=== PATIENT | male | born 1965 | race Two or more races ===

== ENCOUNTER 2024-05-12 18:04 | Inpatient (IN) | payer OTHER ==
[~2024-05-12] VITALS: Ht 180.3 cm; Wt 115.4 kg
[2024-05-12 20:54] VITALS: PULSE 102; RESP 18; O2SAT 93
[2024-05-12] MEDS ORDERED: OMEP1CAP70 (21:27)
[2024-05-12] MEDS ORDERED: METF-372 (21:27)
[2024-05-12] MEDS ORDERED: CLOB0.05 (21:27)
[2024-05-12] MEDS ORDERED: LISI20TA56 (21:27)
[2024-05-12] MEDS ORDERED: TAMS0.4C39 (21:27)
[2024-05-12] MEDS ORDERED: DOCU-265 (21:27)
[2024-05-12] MEDS ORDERED: MELA5TAB16 (21:27)
[2024-05-12] MEDS ORDERED: FIN5T (21:27)
[2024-05-12] MEDS ORDERED: LACT10SO3 PO (21:27)
[2024-05-12] MEDS ORDERED: ALBU1AER4 (21:27)
[2024-05-12 21:29] VITALS: BP 168/91; PULSE 106; RESP 20; TEMP 98.7; O2SAT 97
[2024-05-12] MEDS ORDERED: ONDANSETRON HCL 4 MG/2 ML VIAL IV PRN (22:30)
[2024-05-12 23:02] LABS: Basophils # (auto) 0 10 ^3/uL (0-0.2); Basophils % (auto) 0.3 % (0.0-2.0); Eosinophils # (auto) 0.4 10 ^3/uL (0-0.8); Eosinophils % (auto) 4.6 % (0.0-7.0); Hematocrit 31.4 % (41.0-53.0); Hemoglobin 10.4 g/dL (13.5-17.5); Lymphocytes # (auto) 1.4 10 ^3/uL (0.4-5.4); Lymphocytes % (auto) 16.5 % (10.0-50.0); Mean Corpuscular Hemoglobin 30.1 pg (28.0-32.0); Mean Corpuscular Hgb Conc. 33.1 g/dL (32.0-36.0); Mean Corpuscular Volume 90.9 fL (80.0-100.0); Monocytes # (auto) 0.6 10 ^3/uL (0-1.3); Neutrophils # (auto) 6.3 10 ^3/uL (1.6-8.6); Neutrophils % (auto) 71.6 % (37.0-80.0); Nucleated Red Blood Cells % 0.1 %; Platelet Count (auto) 191 10^3/uL (140-450); Red Blood Cells 3.45 10^6/uL (4.5-5.90); White Blood Cell 8.7 10^3/uL (4.4-10.8)
[2024-05-12] MEDS: cefTRIAXone 1GM/50ML D5W 50 ML IV ONE (23:05)
[2024-05-12 23:17] LABS: Alanine Aminotransferase 72 U/L (7-40); Albumin 3.9 g/dL (3.2-4.8); Alkaline Phosphatase 97 U/L (46-116); Anion Gap 7 (5-15); Aspartate Aminotransferase 36 U/L (13-40); BUN/Creatinine Ratio 17.4 (10.0-20.0); Bilirubin, Total 0.5 mg/dL (0.2-1.0); Blood Urea Nitrogen 20 mg/dL (9-23); Calcium 9.5 mg/dL (8.7-10.4); Carbon Dioxide 22 mmol/L (20-31); Chloride 107 mmol/L (98-107); Glucose 129 mg/dL (74-106); Potassium 4.6 mmol/L (3.5-5.1); Sodium 136 mmol/L (136-145); Total Protein 7.1 g/dL (5.7-8.2)
[2024-05-13] VITALS (14 sets, daily range): BP systolic 114–168; BP diastolic 74–91; PULSE 75–109; RESP 17–20; TEMP 98–98.7; O2SAT 94–99
[2024-05-13] MEDS: ALBUTEROL SULF 2.5 MG/0.5ML(0.5%) NEB SOLN NEB PRN (03:05)
[2024-05-13] MEDS: TEMAZEPAM 15 MG CAP PO PRN (03:06)
--- NOTE | 2024-05-13 05:15 | DVH ---
CHEST RADIOGRAPH Indication: sob Technique: Single frontal view of the chest was obtained COMPARISON: None FINDINGS: Lines and Tubes: None Lungs: Mild congestion Pleura: No effusion. No pneumothorax. Cardiomediastinal contours: Unremarkable Bones: Unremarkable IMPRESSION: Mild congestion
--- NOTE | 2024-05-13 05:22 | DVHHP2 ---
History of Present Illness Reason for Visit: Shortness of breath History of Present Illness 58-year-old male presents for evaluation of shortness for breath. Patient presented to outside hospital with complaints of shortness for breath. He had been seen 10 days prior was diagnosed with pneumonia and a pleural effusion. He reports worsening shortness for breath with difficulty taking deep breaths. He also reports left-sided chest pain. Denies fever or chills. Past Medical History Hypertension, diabetes mellitus, asthma, BPH, liver cirrhosis Past Surgical History None Family History Noncontributory Smoke: No ALCOHOL: none Drugs: None Lives: with Family Review of Systems Review of Systems Review of systems are currently negative otherwise addressed in HPI. Allergies: Coded Allergies: Avocado (Verified Allergy, Unknown, 05/12/24) Banana (Verified Allergy, Unknown, 05/12/24) Kiwi Extract (Verified Allergy, Unknown, 05/12/24) Latex (Verified Allergy, Unknown, 05/12/24) Shrimp Flavor (Verified Allergy, Unknown, 05/12/24) Medications Current Medications Medications Dose Ordered Sig/Meghann Route Start Time Stop Time Status Last Admin Dose Admin Ceftriaxone Sodium 50 ml @ 100 mls/hr DAILY@2100 IV 05/13/24 21:00 Azithromycin 250 ml @ 125 mls/hr DAILY IV 05/13/24 10:00 Albuterol 2.5 mg Q6HPRN PRN NEB 05/12/24 22:30 05/13/24 03:05 2.5 MG Guaifenesin/ Dextromethorphan 10 ml Q4HP PRN PO 05/12/24 22:30 Lisinopril 20 mg DAILY PO 05/13/24 10:00 Tamsulosin HCl 0.4 mg QPM PO 05/13/24 18:00 Temazepam 15 mg QHSP PRN PO 05/12/24 22:30 05/13/24 03:06 15 MG Ondansetron HCl 4 mg Q4HP PRN IV 05/12/24 22:30 Acetaminophen 650 mg Q6HP PRN PO 05/12/24 22:30 Exam Vital Signs Vital Signs Date Time Temp Pulse Resp B/P (MAP) Pulse Ox O2 Delivery O2 Flow Rate FiO2 05/13/24 03:13 92 20 99 05/13/24 03:05 98.7 168/91 3.0 32 98.7 05/13/24 03:05 Nasal Cannula Exam Gen: 58-year-old male in mild distress Skin: Warm, dry, normal color and texture, no rash. HEENT: Normocephalic atraumatic, mucous membranes moist and pink. Neck: Cervical and supraclavicular nodes normal without enlargement, trachea is midline, thyroid gland is normal without masses. Pulmonary: Diminished left-sided breath sounds Cardiac: Regular rate and rhythm. No murmur Abdomen: Soft, nontender, nondistended, bowel sounds present all 4 quadrants, no guarding, no rigidity, no organomegaly. Extremities: No cyanosis, clubbing, no edema Neuro: Cranial nerves II through XII grossly intact, normal affect and speech, n o focal motor deficits. Labs/Xrays Labs Test 05/12/24 22:47 Range/Units White Blood Count 8.7 4.4-10.8 10^3/uL Red Blood Count 3.45 L 4.5-5.90 10^6/uL Hemoglobin 10.4 L 13.5-17.5 g/dL Hematocrit 31.4 L 41.0-53.0 % Mean Corpuscular Volume 90.9 80.0-100.0 fL Mean Corpuscular Hemoglobin 30.1 28.0-32.0 pg Mean Corpuscular Hemoglobin Concent 33.1 32.0-36.0 g/dL Red Cell Distribution Width 15.0 H 11.8-14.3 % Platelet Count 191 140-450 10^3/uL Mean Platelet Volume 7.8 6.9-10.8 fL Neutrophils (%) (Auto) 71.6 37.0-80.0 % Lymphocytes (%) (Auto) 16.5 10.0-50.0 % Monocytes (%) (Auto) 7.0 0.0-12.0 % Eosinophils (%) (Auto) 4.6 0.0-7.0 % Basophils (%) (Auto) 0.3 0.0-2.0 % Neutrophils # (Auto) 6.3 1.6-8.6 10 ^3/uL Lymphocytes # (Auto) 1.4 0.4-5.4 10 ^3/uL Monocytes # (Auto) 0.6 0-1.3 10 ^3/uL Eosinophils # (Auto) 0.4 0-0.8 10 ^3/uL Basophils # (Auto) 0 0-0.2 10 ^3/uL Nucleated Red Blood Cells 0.1 % D-Dimer, Quantitative 6.48 H 0.0-0.49 mg/L FEU Sodium Level 136 136-145 mmol/L Potassium Level 4.6 3.5-5.1 mmol/L Chloride Level 107 98-107 mmol/L Carbon Dioxide Level 22 20-31 mmol/L Anion Gap 7 5-15 Blood Urea Nitrogen 20 9-23 mg/dL Creatinine 1.15 0.700-1.30 mg/dL Glomerular Filtration Rate Calc 75 >90 mL/min BUN/Creatinine Ratio 17.4 10.0-20.0 Serum Glucose 129 H 74-106 mg/dL Calcium Level 9.5 8.7-10.4 mg/dL Total Bilirubin 0.5 0.2-1.0 mg/dL Aspartate Amino Transferase (AST) 36 13-40 U/L Alanine Aminotransferase (ALT) 72 H 7-40 U/L Alkaline Phosphatase 97 46-116 U/L Troponin I High Sensitivity < 3 L </=54 ng/L B-Type Natriuretic Peptide 11.88 0-100 pg/mL Total Protein 7.1 5.7-8.2 g/dL Albumin 3.9 3.2-4.8 g/dL Assessment/Plan Assessment/Plan Assessment Community-acquired pneumonia Large left-sided pleural effusion Hypertension Diabetes mellitus Plan Admit the patient to [facility] to the hospitalist Radiology consultation for possible thoracentesis CT angiogram pending Resume home medications Continue treatment per orders. Plan discussed with: Patient My Orders Orders - NORIS CLAYTON AGACNP Procedure Category Date Status Time Chest Xray 1 View XY 05/13/24 Taken 04:00 Ceftriaxone 1gm/50ml PHA 05/13/24 In Process D5w (Rocephin) 21:00 Azithromycin 500mg/ PHA 05/13/24 In Process 250ml (Zithromax 50 10:00 * Radiologist Consult CONS 05/12/24 Transmitted 22:23 Consistent DIET 05/13/24 Transmitted Carb(Ccho)Diabetes Breakfast Albuterol Medneb PHA 05/12/24 In Process (Ventolin Medneb) 22:30 Guaifenesin-Dextromet PHA 05/12/24 In Process Liquid (Robitussin 22:30 Lisinopril Tablet PHA 05/13/24 In Process (Zestril Tablet) 10:00 Tamsulosin PHA 05/13/24 In Process Hydrochloride (Flomax) 18:00 Admit ADMIT 05/12/24 Transmitted 22:23 Temazepam (Restoril) PHA 05/12/24 In Process 22:30 Ondansetron Hcl PHA 05/12/24 In Process (Zofran) 22:30 Condition: Stable MORGAN 05/12/24 In Process 22:23 Acetaminophen Tablet PHA 05/12/24 In Process (Tylenol Tablet) 22:30 Bedrest With Bathroom MORGAN 05/12/24 In Process Privileg 22:[address] 05/13/24 Logged Contrast 05:07 Date of Service: May 13, 2024 Billing Provider: NORIS CLAYTON Common Visit Codes: [id number] INP/OBS CARE (HIGH) NORIS CLAYTON May 13, 2024 05:22
[2024-05-13 06:01] LABS: COVID19 ANTIGEN SOFIA FIA NEGATIVE (NEGATIVE); Rapid Influenza A Negative (Negative); Rapid Influenza B Negative (Negative)
--- NOTE | 2024-05-13 08:10 | DVH ---
US CHEST ULTRASOUND, HISTORY: FLUID CHECK FOR POSSIBLE THORACENTESIS COMPARISON(S): None TECHNICAL DATA: Transverse and longitudinal images are obtained of the chest. FINDING: IMPRESSION(S): Small to moderate left pleural effusion with septation.
[2024-05-13] MEDS: IOHEXOL 350 MG/ML 100ML IJ ONE (08:14)
--- NOTE | 2024-05-13 09:07 | DVH ---
CT CT ANGIO CHEST CONTRAST INDICATION: r/o pe EXAM DATE: 05/13/2024 08:23 AM COMPARISON: None RADIATION DOSE: CTDIvol: 26.85 mGy, DLP: 1025.48 mGy*cm PROCEDURE: Helical CT angiographic images were obtained of the chest with intravenous contrast. Sagi ttal and coronal reconstructions as well as MIPS are provided. Maximum intensity projections performe d (MIPs) were performed for CTA. ADDITIONAL IMAGES / REFORMATS: None All CT scans at this medical facility are performed using dose modulation techniques as appropriate t o a performed exam including the following: Automated exposure control was utilized; adjustment of th e MA and/or KV according to patient size; and use of iterative reconstruction technique. FINDINGS: Bones: Scattered degenerative changes are noted in the visualized osseous structures. Visualized Abdomen: 2.8 cm hypodense left hepatic cystic lesion. Chest Wall: Normal. Soft tissues: Normal. Mediastinum: Normal. Heart: Normal. Vessels: No filling defects in the visualized pulmonary arteries including the segmental and subsegme ntal pulmonary arteries. Lymph Nodes: Prominent left perihilar lymph nodes. Pleura: Moderate loculated left pleural effusion. Airways: Normal. Lung: Left basilar consolidation could be pneumonia. Other: None IMPRESSION: No pulmonary embolism in the visualized pulmonary arteries including the segmental and subsegmental p ulmonary arteries. Moderate loculated left pleural effusion. Left basilar consolidation could be pneumonia.
--- NOTE | 2024-05-13 09:18 | DVH ---
XY CHEST PORTABLE, HISTORY: POST THORACENTESIS COMPARISON: XY CHEST XRAY 1 VIEW on DOS: 05/13/24 XY CHEST XRAY 1 VIEW on DOS: 05/13/24 TECHNICAL DATA: 1 view of the chest was obtained. FINDINGS: Lines and tubes: None Cardiomediastinal silhouette: normal Pulmonary vasculature: normal Lung expansion: normal Lung airspace: normal Lung interstitium: normal Pleura: Small right pleural effusion. Pneumothorax: no Bones: Unremarkable Other: no IMPRESSION: Small right pleural effusion. No pneumothorax seen.
[2024-05-13] MEDS: LISINOPRIL 20 MG TAB PO SCH (09:19)
[2024-05-13] MEDS: ACETAMINOPHEN 325 MG TAB PO PRN (09:20)
--- NOTE | 2024-05-13 09:20 | DVH ---
US THORACENTESIS, HISTORY: LT PLUERAL EFFUSION PROCEDURE: Informed consent was obtained. The patient was seated on the bed. A limited localization u ltrasound of the left thorax was obtained, and the optimal approach was marked on the skin. The area was prepped with chlorhexidine which was allowed to dry and draped in the usual sterile fashion. Time out was performed. The skin and the soft tissues were infiltrated with 1% lidocaine. A 5.5 [place] ce ntesis needle catheter was advanced into left pleural space. Following aspiration of fluid, the kita ter was advanced and the needle removed. About 1200 cc of fluid was drained. Specimen/s was/were sent for appropriate cultures/cytology/cultures and cytology. No immediate complication was identified. FINDINGS: Moderate left pleural effusion. Aspirated fluid is clear and serous. IMPRESSION: left thoracentesis with 1.2L removed.
[2024-05-13 11:38] LABS: Body Fluid Red Blood Cells 8356 CUMM (0-2000); Body Fluid White Blood Cells 3118 CUMM (0-200)
[2024-05-13 11:39] LABS: Body Fluid Polymorphonuclear 61 % (0-25)
[2024-05-13] MEDS: AZITHROMYCIN 500MG/ 250ML 250 ML IV SCH (13:51)
[2024-05-13] MEDS: guaiFENesin-DM 100/10mg/5ml SYR PO PRN (13:51)
--- NOTE | 2024-05-13 14:12 | DVHPN2 ---
Progress Note Date Seen: May 13, 2024 Medical Necessity Reason Pt with a Central, PICC or Fol: No Subjective Patient reports: No new complaints Review of Systems: HEENT:Normal, CVS:Normal, RESPIRATORY:Normal, GI:Normal, :Normal, MSK:Normal, NEURO:Normal Objective vital signs Vital Sign Date Time Temp Pulse Resp B/P (MAP) Pulse Ox O2 Delivery O2 Flow Rate FiO2 05/13/24 10:00 94 Nasal Cannula* 3 32 05/13/24 09:19 146/76 05/13/24 08:50 98.2 101 18 98.2 Total Intake and Output 05/12/24 05/12/24 05/13/24 15:00 23:00 07:00 Intake Total 450 ml Balance 450 ml medications Current Medications Medications Dose Ordered Sig/Meghann Route Start Time Stop Time Status Last Admin Dose Admin Ceftriaxone Sodium 50 ml @ 100 mls/hr DAILY@2100 IV 05/13/24 21:00 Azithromycin 250 ml @ 125 mls/hr DAILY IV 05/13/24 10:00 05/13/24 13:51 125 MLS/HR Albuterol 2.5 mg Q6HPRN PRN NEB 05/12/24 22:30 05/13/24 03:05 2.5 MG Guaifenesin/ Dextromethorphan 10 ml Q4HP PRN PO 05/12/24 22:30 05/13/24 13:51 10 ML Lisinopril 20 mg DAILY PO 05/13/24 10:00 05/13/24 09:19 20 MG Tamsulosin HCl 0.4 mg QPM PO 05/13/24 18:00 Temazepam 15 mg QHSP PRN PO 05/12/24 22:30 05/13/24 03:06 15 MG Ondansetron HCl 4 mg Q4HP PRN IV 05/12/24 22:30 Acetaminophen 650 mg Q6HP PRN PO 05/12/24 22:30 05/13/24 09:20 650 MG Examination: GENERAL:Normal, HEENT:Normal, NECK:Normal, LUNGS:Normal, CVS:Normal, ABDOMEN:Normal, MSK:Normal, SKIN:Normal, NEURO:Normal, :Normal laboratory and microbiology Laboratory Tests 05/12/24 22:47 Test 05/12/24 22:47 Range/Units Serum Glucose 129 H 74-106 mg/dL Problem List/Assessment/Plan Problem List/Assessment/Plan #1 acute resp failure: cont oxygen #2 left effusion s/p thoracentesis: await results #3 ? pneumonia - gram positive/neg:iv antibiotics #4 dm: ssi #5 htn #6 obesity #7 liver cirrhosis- ? metabolic #8 wt loss #9 bph advance care planning- full code- time spent 19 mins Plan discussed with: Patient Date of Service: May 13, 2024 Billing Provider: NORIS BRONSON MD Common Visit Codes: [id number] INP/OBS CARE(HIGH) Secondary Visit Codes: [id number] CARE PLAN 30 MINUTES NORIS BRONSON MD May 13, 2024 14:12
[2024-05-13] MEDS ORDERED: DEXTROSE (50%) 50ML SYRG IV PRN (14:15)
[2024-05-13] MEDS: ACCU-CHEK COMFORT CURVE STRIP VI SCH (17:00)
[2024-05-13] MEDS: InsuLIN REG 1unit/0.01ml Soln (100units/ml) SC SCH (17:00)
[2024-05-13] MEDS: TAMSULOSIN HYDROCHLORIDE 0.4 MG CAP PO SCH (18:27)
[2024-05-13 19:11] LABS: Urine Bacteria None Seen /hpf (None Seen)
[2024-05-13 19:38] LABS: Urine Blood Negative /uL (Negative); Urine Clarity Clear (Clear); Urine Color Light-Yellow (Yellow); Urine Mucus FEW (None Seen); Urine Protein, UAD Negative (Negative); Urine Specific Gravity 1.021 (1.001-1.035); Urine Squamous Epithelial Cell FEW /hpf (<5); Urine Urobilinogen Normal (Negative); Urine WBC 2 /HPF (0-3)
[2024-05-13] MEDS: cefTRIAXone 1GM/50ML D5W 50 ML IV SCH (20:50)
[2024-05-14] VITALS (12 sets, daily range): BP systolic 112–135; BP diastolic 62–79; PULSE 81–102; RESP 17–20; TEMP 98–99.1; O2SAT 92–100
[2024-05-14 06:20] LABS: Basophils # (auto) 0 10 ^3/uL (0-0.2); Basophils % (auto) 0.4 % (0.0-2.0); Eosinophils # (auto) 0.4 10 ^3/uL (0-0.8); Hematocrit 30.1 % (41.0-53.0); Hemoglobin 10.1 g/dL (13.5-17.5); Lymphocytes # (auto) 1.3 10 ^3/uL (0.4-5.4); Lymphocytes % (auto) 17.1 % (10.0-50.0); Mean Corpuscular Hemoglobin 30.6 pg (28.0-32.0); Mean Corpuscular Hgb Conc. 33.7 g/dL (32.0-36.0); Mean Corpuscular Volume 90.8 fL (80.0-100.0); Monocytes # (auto) 0.7 10 ^3/uL (0-1.3); Neutrophils % (auto) 68.5 % (37.0-80.0); Platelet Count (auto) 190 10^3/uL (140-450); Red Blood Cells 3.31 10^6/uL (4.5-5.90); Red Cell Distribution Width 15.1 % (11.8-14.3); White Blood Cell 7.3 10^3/uL (4.4-10.8)
[2024-05-14 06:40] LABS: Anion Gap 9 (5-15); Carbon Dioxide 23 mmol/L (20-31); Chloride 105 mmol/L (98-107); Potassium 4.1 mmol/L (3.5-5.1); Sodium 137 mmol/L (136-145)
[2024-05-14 06:42] LABS: Calcium 9.8 mg/dL (8.7-10.4)
[2024-05-14 06:47] LABS: BUN/Creatinine Ratio 14.4 (10.0-20.0); Blood Urea Nitrogen 16 mg/dL (9-23); Glucose 141 mg/dL (74-106)
[2024-05-14 11:06] LABS: Protein, Body Fluid 5.5 g/dL (.)
--- NOTE | 2024-05-14 13:23 | DVHPN2 ---
Reviewed: Care Plan, H&P, Labs, Medications, Previous Orders, Radiology Changes from previous H/P or p: No Changes Objective Vitals Vital Signs Date Time Temp Pulse Resp B/P (MAP) Pulse Ox O2 Delivery O2 Flow Rate FiO2 05/14/24 10:25 99 18 100 05/14/24 10:19 Room Air 0.0 05/14/24 10:19 21 05/14/24 09:00 98.5 125/70 (88) 98.5 Intake/Output Intake and Output 05/14/24 07:00 Intake Total 854 ml Balance 854 ml Intake Oral 554 ml IV Total 300 ml # Voids 4 # Bowel Movements 1 Medications Current Medications Medications Dose Ordered Sig/Meghann Route Start Time Stop Time Status Last Admin Dose Admin Ceftriaxone Sodium 50 ml @ 100 mls/hr DAILY@2100 IV 05/13/24 21:00 05/13/24 20:50 100 MLS/HR Azithromycin 250 ml @ 125 mls/hr DAILY IV 05/13/24 10:00 05/14/24 08:58 125 MLS/HR Albuterol 2.5 mg Q6HPRN PRN NEB 05/12/24 22:30 05/14/24 10:17 2.5 MG Guaifenesin/ Dextromethorphan 10 ml Q4HP PRN PO 05/12/24 22:30 05/14/24 08:58 10 ML Lisinopril 20 mg DAILY PO 05/13/24 10:00 05/14/24 08:58 20 MG Tamsulosin HCl 0.4 mg QPM PO 05/13/24 18:00 05/13/24 18:27 0.4 MG Temazepam 15 mg QHSP PRN PO 05/12/24 22:30 05/13/24 22:45 15 MG Ondansetron HCl 4 mg Q4HP PRN IV 05/12/24 22:30 Acetaminophen 650 mg Q6HP PRN PO 05/12/24 22:30 05/14/24 08:58 650 MG Diagnostic Test (Pha) 1 strip ACHS 05/13/24 17:00 05/14/24 11:30 1 STRIP Insulin Human Regular ACHS SC 05/13/24 17:00 05/14/24 12:36 2 UNITS Dextrose 50 ml UD PRN IV 05/13/24 14:15 Laboratory Results Laboratory Tests 05/14/24 05:34 Chemistry Test 05/14/24 05:34 Calcium Level 9.8 mg/dL (8.7-10.4) HgA1c, TSH Test 05/14/24 05:34 Hemoglobin A1c 6.3 % A1C (<5.7) H Urinalysis Test 05/13/24 18:36 Urine Color Light-yellow (Yellow) Urine Clarity Clear (Clear) Urine pH 5.0 (5.0-9.0) Urine Specific [place] 1.021 (1.001-1.035) Urine Protein Negative (Negative) Urine Ketones Negative (Negative) Urine Blood Negative /uL (Negative) Urine Nitrite Negative (Negative) Urine Bilirubin Negative (Negative) Urine Urobilinogen Normal mg/dL (Negative) Urine Leukocyte Esterase Negative /uL (Negative) Urine RBC 6 /hpf (0 - 3) Urine Microscopic WBC 2 /HPF (0-3) Urine Squamous Epithelial Cells Few /hpf (<5) Urine Uric Acid Crystals Few /hpf (None Seen) Urine Bacteria None seen /hpf (None Seen) Urine Mucus Few (None Seen) Urine Glucose 3+ mg/dL (Normal) H Microbiology Microbiology Date/Time Source Procedure Growth Status 05/13/24 09:10 Pleural Fluid Gram Stain - Final Resulted 05/13/24 09:10 Pleural Fluid Aerobic Culture - Preliminary Resulted Labs and/or images reviewed: Labs reviewed by me, Image(s) reviewed by me Assessment/Plan Assessment/Plan Covering for Dr. Arrieta #1 acute resp failure: cont oxygen #2 left effusion s/p thoracentesis: Culture result pending #3 Community-acquired pneumonia: Rocephin azithromycin #4 dm: ssi #5 htn #6 obesity #7 liver cirrhosis- ? metabolic #8 wt loss #9 bph Time spent 45 minutes Advanced Care planning time 20 minutes Plan discussed with: Patient Date of Service: May 14, 2024 Billing Provider: VAL HEATH MD Common Visit Codes: [id number] INP/OBS CARE(HIGH) Secondary Visit Codes: [id number] CARE PLAN 30 MINUTES VAL HEATH MD May 14, 2024 13:23
[2024-05-14] MEDS: LACTULOSE 20Gm/30ML SOLN PO ONE (18:18)
[2024-05-15] VITALS (14 sets, daily range): BP systolic 121–131; BP diastolic 66–76; PULSE 88–111; RESP 18–20; TEMP 98–99.5; O2SAT 90–100
--- NOTE | 2024-05-15 10:06 | DVHPN2 ---
Reviewed: Care Plan, H&P, Labs, Medications, Previous Orders, Radiology Changes from previous H/P or p: No Changes Objective Vitals Vital Signs Date Time Temp Pulse Resp B/P (MAP) Pulse Ox O2 Delivery O2 Flow Rate FiO2 05/15/24 08:57 93 18 99 05/15/24 08:52 Room Air* 0 21 05/15/24 08:30 98.6 122/73 (89) 98.6 Intake/Output Intake and Output 05/15/24 07:00 Intake Total 1850 ml Balance 1850 ml Intake Oral 1550 ml IV Total 300 ml # Voids 7 # Bowel Movements 3 Medications Current Medications Medications Dose Ordered Sig/Meghann Route Start Time Stop Time Status Last Admin Dose Admin Ceftriaxone Sodium 50 ml @ 100 mls/hr DAILY@2100 IV 05/13/24 21:00 05/14/24 20:56 100 MLS/HR Azithromycin 250 ml @ 125 mls/hr DAILY IV 05/13/24 10:00 05/14/24 08:58 125 MLS/HR Albuterol 2.5 mg Q6HPRN PRN NEB 05/12/24 22:30 05/15/24 08:50 2.5 MG Guaifenesin/ Dextromethorphan 10 ml Q4HP PRN PO 05/12/24 22:30 05/14/24 23:40 10 ML Lisinopril 20 mg DAILY PO 05/13/24 10:00 05/14/24 08:58 20 MG Tamsulosin HCl 0.4 mg QPM PO 05/13/24 18:00 05/14/24 18:11 0.4 MG Temazepam 15 mg QHSP PRN PO 05/12/24 22:30 05/14/24 23:40 15 MG Ondansetron HCl 4 mg Q4HP PRN IV 05/12/24 22:30 Acetaminophen 650 mg Q6HP PRN PO 05/12/24 22:30 05/14/24 08:58 650 MG Diagnostic Test (Pha) 1 strip ACHS 05/13/24 17:00 05/15/24 06:04 1 STRIP Insulin Human Regular ACHS SC 05/13/24 17:00 05/15/24 06:04 2 UNITS Dextrose 50 ml UD PRN IV 05/13/24 14:15 Laboratory Results Laboratory Tests 05/14/24 05:34 Urinalysis Test 05/13/24 18:36 Urine Color Light-yellow (Yellow) Urine Clarity Clear (Clear) Urine pH 5.0 (5.0-9.0) Urine Specific [place] 1.021 (1.001-1.035) Urine Protein Negative (Negative) Urine Ketones Negative (Negative) Urine Blood Negative /uL (Negative) Urine Nitrite Negative (Negative) Urine Bilirubin Negative (Negative) Urine Urobilinogen Normal mg/dL (Negative) Urine Leukocyte Esterase Negative /uL (Negative) Urine RBC 6 /hpf (0 - 3) Urine Microscopic WBC 2 /HPF (0-3) Urine Squamous Epithelial Cells Few /hpf (<5) Urine Uric Acid Crystals Few /hpf (None Seen) Urine Bacteria None seen /hpf (None Seen) Urine Mucus Few (None Seen) Urine Glucose 3+ mg/dL (Normal) H Microbiology Microbiology Date/Time Source Procedure Growth Status 05/13/24 09:10 Pleural Fluid Gram Stain - Final Resulted 05/13/24 09:10 Pleural Fluid Aerobic Culture - Preliminary Resulted Labs and/or images reviewed: Labs reviewed by me, Image(s) reviewed by me Assessment/Plan Assessment/Plan Covering for Dr. Arrieta #1 acute resp failure: cont oxygen #2 left effusion s/p thoracentesis: Culture result pending #3 Community-acquired pneumonia: Rocephin azithromycin #4 dm: ssi #5 htn #6 obesity #7 liver cirrhosis- ? metabolic #8 wt loss #9 bph Time spent 48 minutes Plan discussed with: Patient Date of Service: May 15, 2024 Billing Provider: VAL HEATH MD Common Visit Codes: [id number] INP/OBS CARE(HIGH) VAL HEATH MD May 15, 2024 10:06
[2024-05-16] VITALS (13 sets, daily range): BP systolic 115–131; BP diastolic 61–72; PULSE 80–104; RESP 16–20; TEMP 98–99.6; O2SAT 91–100
[2024-05-16 07:00] LABS: Basophils # (auto) 0 10 ^3/uL (0-0.2); Basophils % (auto) 0.3 % (0.0-2.0); Eosinophils # (auto) 0.4 10 ^3/uL (0-0.8); Hematocrit 30.9 % (41.0-53.0); Hemoglobin 10.3 g/dL (13.5-17.5); Lymphocytes # (auto) 1.8 10 ^3/uL (0.4-5.4); Mean Corpuscular Hemoglobin 30.1 pg (28.0-32.0); Mean Corpuscular Hgb Conc. 33.4 g/dL (32.0-36.0); Mean Corpuscular Volume 90.3 fL (80.0-100.0); Monocytes # (auto) 0.7 10 ^3/uL (0-1.3); Monocytes % (auto) 7.9 % (0.0-12.0); Neutrophils # (auto) 6.4 10 ^3/uL (1.6-8.6); Neutrophils % (auto) 68.8 % (37.0-80.0); Platelet Count (auto) 243 10^3/uL (140-450); Red Blood Cells 3.42 10^6/uL (4.5-5.90); White Blood Cell 9.3 10^3/uL (4.4-10.8)
[2024-05-16 07:18] LABS: Albumin 3.9 g/dL (3.2-4.8); Anion Gap 11 (5-15); BUN/Creatinine Ratio 12.7 (10.0-20.0); Bilirubin, Total 0.4 mg/dL (0.2-1.0); Blood Urea Nitrogen 15 mg/dL (9-23); Calcium 9.4 mg/dL (8.7-10.4); Carbon Dioxide 23 mmol/L (20-31); Chloride 101 mmol/L (98-107); Potassium 4.3 mmol/L (3.5-5.1); Total Protein 7.1 g/dL (5.7-8.2)
[2024-05-16 07:24] LABS: Alanine Aminotransferase 106 U/L (7-40); Alkaline Phosphatase 118 U/L (46-116); Aspartate Aminotransferase 66 U/L (13-40); Glucose 135 mg/dL (74-106); Sodium 135 mmol/L (136-145)
--- NOTE | 2024-05-16 12:59 | DVHPN2 ---
Reviewed: Care Plan, H&P, Labs, Medications, Previous Orders, Radiology Changes from previous H/P or p: No Changes Objective Vitals Vital Signs Date Time Temp Pulse Resp B/P (MAP) Pulse Ox O2 Delivery O2 Flow Rate FiO2 05/16/24 09:29 125/72 05/16/24 09:00 98.1 98 18 91 98.1 05/16/24 03:17 4.0 05/16/24 03:17 Nasal Cannula* 36 Intake/Output Intake and Output 05/16/24 07:00 Intake Total 2548 ml Balance 2548 ml Intake Oral 2248 ml IV Total 300 ml # Voids 10 Medications Current Medications Medications Dose Ordered Sig/Meghann Route Start Time Stop Time Status Last Admin Dose Admin Ceftriaxone Sodium 50 ml @ 100 mls/hr DAILY@2100 IV 05/13/24 21:00 05/15/24 21:08 100 MLS/HR Azithromycin 250 ml @ 125 mls/hr DAILY IV 05/13/24 10:00 05/16/24 09:24 125 MLS/HR Albuterol 2.5 mg Q6HPRN PRN NEB 05/12/24 22:30 05/16/24 03:17 2.5 MG Guaifenesin/ Dextromethorphan 10 ml Q4HP PRN PO 05/12/24 22:30 05/15/24 22:15 10 ML Lisinopril 20 mg DAILY PO 05/13/24 10:00 05/16/24 09:29 20 MG Tamsulosin HCl 0.4 mg QPM PO 05/13/24 18:00 05/15/24 17:36 0.4 MG Temazepam 15 mg QHSP PRN PO 05/12/24 22:30 05/16/24 00:06 15 MG Ondansetron HCl 4 mg Q4HP PRN IV 05/12/24 22:30 Acetaminophen 650 mg Q6HP PRN PO 05/12/24 22:30 05/14/24 08:58 650 MG Diagnostic Test (Pha) 1 strip ACHS 05/13/24 17:00 05/16/24 11:50 1 STRIP Insulin Human Regular ACHS SC 05/13/24 17:00 05/16/24 11:51 3 UNITS Dextrose 50 ml UD PRN IV 05/13/24 14:15 Laboratory Results Laboratory Tests 05/16/24 05:38 Chemistry Test 05/16/24 05:38 Albumin 3.9 g/dL (3.2-4.8) Calcium Level 9.4 mg/dL (8.7-10.4) Total Protein 7.1 g/dL (5.7-8.2) LFT Test 05/16/24 05:38 Alanine Aminotransferase (ALT) 106 U/L (7-40) H Alkaline Phosphatase 118 U/L (46-116) H Aspartate Amino Transferase (AST) 66 U/L (13-40) H Total Bilirubin 0.4 mg/dL (0.2-1.0) Urinalysis Test 05/13/24 18:36 Urine Color Light-yellow (Yellow) Urine Clarity Clear (Clear) Urine pH 5.0 (5.0-9.0) Urine Specific [place] 1.021 (1.001-1.035) Urine Protein Negative (Negative) Urine Ketones Negative (Negative) Urine Blood Negative /uL (Negative) Urine Nitrite Negative (Negative) Urine Bilirubin Negative (Negative) Urine Urobilinogen Normal mg/dL (Negative) Urine Leukocyte Esterase Negative /uL (Negative) Urine RBC 6 /hpf (0 - 3) Urine Microscopic WBC 2 /HPF (0-3) Urine Squamous Epithelial Cells Few /hpf (<5) Urine Uric Acid Crystals Few /hpf (None Seen) Urine Bacteria None seen /hpf (None Seen) Urine Mucus Few (None Seen) Urine Glucose 3+ mg/dL (Normal) H Microbiology Microbiology Date/Time Source Procedure Growth Status 05/13/24 09:10 Pleural Fluid Gram Stain - Final Resulted 05/13/24 09:10 Pleural Fluid Aerobic Culture - Preliminary Resulted Labs and/or images reviewed: Labs reviewed by me, Image(s) reviewed by me Assessment/Plan Assessment/Plan Covering for Dr. Arrieta #1 acute resp failure: cont oxygen #2 left effusion s/p thoracentesis: Pleural fluid Culture result pending #3 Community-acquired pneumonia: Rocephin azithromycin #4 dm: ssi #5 htn #6 obesity #7 liver cirrhosis- ? metabolic #8 wt loss #9 bph Time spent 48 minutes Plan discussed with: Patient Date of Service: May 16, 2024 Billing Provider: VAL HEATH MD Common Visit Codes: [id number] INP/OBS CARE(HIGH) VAL HEATH MD May 16, 2024 12:59
[2024-05-17] VITALS (14 sets, daily range): BP systolic 105–128; BP diastolic 56–76; PULSE 88–106; RESP 17–20; TEMP 98.1–99.1; O2SAT 92–100
[2024-05-17 09:03] LABS: Hepatitis B Surface Antigen Negative (Negative)
[2024-05-17 09:24] LABS: Hepatitis A Ab IgM Negative; Hepatitis B Core IgM Negative (Negative); Hepatitis C Antibody Negative (Negative)
--- NOTE | 2024-05-17 12:59 | DVHPN2 ---
Progress Note Date Seen: May 17, 2024 Medical Necessity Reason Pt with a Central, PICC or Fol: No Subjective Patient reports: No new complaints Review of Systems: HEENT:Normal, CVS:Normal, RESPIRATORY:Normal, GI:Normal, :Normal, MSK:Normal, NEURO:Normal Objective vital signs Vital Sign Date Time Temp Pulse Resp B/P (MAP) Pulse Ox O2 Delivery O2 Flow Rate FiO2 05/17/24 10:22 124/76 05/17/24 09:54 93 Nasal Cannula* 3 32 05/17/24 09:25 91 18 05/17/24 08:52 98.6 98.6 Total Intake and Output 05/16/24 05/16/24 05/17/24 15:00 23:00 07:00 Intake Total 250 ml 1330 ml 600 ml Balance 250 ml 1330 ml 600 ml medications Current Medications Medications Dose Ordered Sig/Meghann Route Start Time Stop Time Status Last Admin Dose Admin Ceftriaxone Sodium 50 ml @ 100 mls/hr DAILY@2100 IV 05/13/24 21:00 05/16/24 21:48 100 MLS/HR Azithromycin 250 ml @ 125 mls/hr DAILY IV 05/13/24 10:00 05/17/24 10:24 125 MLS/HR Albuterol 2.5 mg Q6HPRN PRN NEB 05/12/24 22:30 05/17/24 09:18 2.5 MG Guaifenesin/ Dextromethorphan 10 ml Q4HP PRN PO 05/12/24 22:30 05/16/24 15:13 10 ML Lisinopril 20 mg DAILY PO 05/13/24 10:00 05/17/24 10:22 20 MG Tamsulosin HCl 0.4 mg QPM PO 05/13/24 18:00 05/16/24 17:15 0.4 MG Temazepam 15 mg QHSP PRN PO 05/12/24 22:30 05/16/24 21:47 15 MG Ondansetron HCl 4 mg Q4HP PRN IV 05/12/24 22:30 Acetaminophen 650 mg Q6HP PRN PO 05/12/24 22:30 05/14/24 08:58 650 MG Diagnostic Test (Pha) 1 strip ACHS 05/13/24 17:00 05/17/24 10:39 1 STRIP Insulin Human Regular ACHS SC 05/13/24 17:00 05/17/24 06:19 2 UNITS Dextrose 50 ml UD PRN IV 05/13/24 14:15 Examination: GENERAL:Normal, HEENT:Normal, NECK:Normal, LUNGS:Normal, CVS:Normal, ABDOMEN:Normal, MSK:Normal, SKIN:Normal, NEURO:Normal, :Normal laboratory and microbiology Laboratory Tests 05/16/24 05:38 Test 05/16/24 05:38 Range/Units Serum Glucose 135 H 74-106 mg/dL Microbiology Date/Time Source Procedure Growth Status 05/13/24 09:10 Pleural Fluid Gram Stain - Final Resulted 05/13/24 09:10 Pleural Fluid Aerobic Culture - Preliminary Resulted Problem List/Assessment/Plan Problem List/Assessment/Plan #1 acute resp failure: cont oxygen #2 left effusion s/p thoracentesis: exudate, ct chest/abd/pelvis #3 ? pneumonia - gram positive/neg:iv antibiotics #4 dm: ssi #5 htn #6 obesity #7 liver cirrhosis- ? metabolic #8 wt loss #9 bph #10 transaminitis: monitor advance care planning- full code- time spent 19 mins Plan discussed with: Patient My Orders My Orders Orders - NORIS BRONSON MD Procedure Category Date Status Time Ct Chest/Ab/Pl W Con- CT 05/17/24 Verified Iv Only 12:51 Azithromycin Tablet PHA 05/18/24 Verified (Zithromax Tablet) 10:00 Complete Blood Count LAB 05/18/24 Verified 06:00 Comprehensive LAB 05/18/24 Verified Metabolic Panel 06:00 Iron Panel LAB 05/18/24 Verified 06:00 Lactate Dehydrogenase LAB 05/18/24 Verified 05:00 Date of Service: May 17, 2024 Billing Provider: NORIS BRONSON MD Common Visit Codes: [id number] INP/OBS CARE(HIGH) NORIS BRONSON MD May 17, 2024 12:59
[2024-05-17] MEDS: IOHEXOL 300 MG/ML 100ML BOTTLE IJ ONE (13:19)
--- NOTE | 2024-05-17 13:59 | DVH ---
Exam: CT CT CHEST/AB/PL W CON- IV ONLY History: LEFT EFFUSION Comparison Study: None available at time of dictation. Technique: Multidetector spiral CT of the chest, abdomen and pelvis was performed from lower neck to pubic symphysis. 100 cc Omni 300 intravenous contrast was administered during this examination. Port al venous imaging was obtained. Axial, coronal and sagittal multiplanar reformats were performed by the technologist on a separate workstation. Radiation Dose : Chest/Abdomen/Pelvis: CTDIvol 23 mGy, DLP 1782.58 mGy*cm. Findings: Lower neck: Normal thyroid. Lungs: Left basilar atelectasis and consolidation. Heart/Vascular Structures: Normal heart size. Trace pericardial effusion. Lymph Nodes: Subcentimeter mediastinal lymph nodes. Pleura: Moderate loculated left pleural effusion. Liver: Few hepatic cysts. Diffuse hepatic steatosis. Peripheral geographic areas of increased densit y/enhancement in the right lobe of the liver. Gallbladder and biliary Tree: Unremarkable Spleen: Enlarged Pancreas: Subcentimeter cyst in the tail of the pancreas. Adrenal Glands: Unremarkable Kidneys: Bilateral renal calculi. Right renal cyst. No hydronephrosis. Bladder: Unremarkable Bowel: The stomach is grossly normal in appearance. Small bowel and colon are normal in caliber and d istribution. Normal appendix is visualized in the right lower quadrant without findings of appendici tis. Few loops of abnormal small bowel in the left mid abdomen with wall thickening and adjacent stra nding. Ascites: Absent Lymphadenopathy: No mesenteric, retroperitoneal or periportal lymphadenopathy. Abdominal wall and Mesentery: Unremarkable. Vasculature: The visualized abdominal aorta is normal in size and caliber. There is calcified atheros clerotic plaque involving the aorta and its branches. Abdominal and pelvic vessels demonstrate normal enhancement. Pelvic Organs: Unremarkable Musculoskeletal: No aggressive focal bony lesions, acute fractures or dislocation. IMPRESSION: 1. Moderate loculated left pleural effusion with associated left basilar atelectasis and consolidatio n. Nonspecific mediastinal lymphadenopathy. 2. Diffuse hepatic steatosis. Few hepatic cysts. Peripheral areas of increased density or enhanceme nt in the right lobe of the liver could be perfusional anomalies or focal fatty sparing. Subcentimete r cystic lesion in the tail of the pancreas. Consider further evaluation with MRI of the abdomen wit h contrast. 3. Few abnormal loops of small bowel in the left mid abdomen with associated wall thickening and jethro cent stranding. Finding is nonspecific but could be related to an infectious or inflammatory process . Clinical correlation and continued follow-up is recommended. Consider further evaluation with smal l bowel follow-through. 4. Bilateral renal calculi. Right renal cysts. No hydronephrosis. HS:Y
[2024-05-18] VITALS (13 sets, daily range): BP systolic 100–126; BP diastolic 47–75; PULSE 84–107; RESP 18–22; TEMP 97.9–98.8; O2SAT 91–98
[2024-05-18 06:15] LABS: Basophils # (auto) 0.1 10 ^3/uL (0-0.2); Basophils % (auto) 0.6 % (0.0-2.0); Eosinophils # (auto) 0.3 10 ^3/uL (0-0.8); Eosinophils % (auto) 2.8 % (0.0-7.0); Hematocrit 33.4 % (41.0-53.0); Hemoglobin 11.2 g/dL (13.5-17.5); Lymphocytes # (auto) 1.5 10 ^3/uL (0.4-5.4); Mean Corpuscular Hemoglobin 30.1 pg (28.0-32.0); Mean Corpuscular Hgb Conc. 33.4 g/dL (32.0-36.0); Mean Corpuscular Volume 90.1 fL (80.0-100.0); Monocytes # (auto) 0.7 10 ^3/uL (0-1.3); Monocytes % (auto) 6.6 % (0.0-12.0); Neutrophils # (auto) 7.9 10 ^3/uL (1.6-8.6); Platelet Count (auto) 285 10^3/uL (140-450); Red Blood Cells 3.71 10^6/uL (4.5-5.90); White Blood Cell 10.4 10^3/uL (4.4-10.8)
[2024-05-18 06:35] LABS: % Iron Saturation 15.4 % (20-55)
[2024-05-18 06:37] LABS: Albumin 3.8 g/dL (3.2-4.8); Anion Gap 11 (5-15); Aspartate Aminotransferase 34 U/L (13-40); BUN/Creatinine Ratio 18.4 (10.0-20.0); Bilirubin, Total 0.5 mg/dL (0.2-1.0); Blood Urea Nitrogen 21 mg/dL (9-23); Calcium 9.9 mg/dL (8.7-10.4); Carbon Dioxide 24 mmol/L (20-31); Chloride 100 mmol/L (98-107); Potassium 4.5 mmol/L (3.5-5.1)
[2024-05-18 06:38] LABS: Total Protein 7.4 g/dL (5.7-8.2)
[2024-05-18 06:50] LABS: Alanine Aminotransferase 91 U/L (7-40); Alkaline Phosphatase 118 U/L (46-116); Glucose 160 mg/dL (74-106); Sodium 135 mmol/L (136-145)
[2024-05-18] MEDS: AZITHROMYCIN 250 MG TAB PO SCH (09:03)
--- NOTE | 2024-05-18 12:10 | DVHPN2 ---
Progress Note Date Seen: May 18, 2024 Medical Necessity Reason Pt with a Central, PICC or Fol: No Subjective Patient reports: No new complaints Review of Systems: HEENT:Normal, CVS:Normal, RESPIRATORY:Normal, GI:Normal, :Normal, MSK:Normal, NEURO:Normal Objective vital signs Vital Sign Date Time Temp Pulse Resp B/P (MAP) Pulse Ox O2 Delivery O2 Flow Rate FiO2 05/18/24 11:53 98.6 101 18 126/75 (92) 92 98.6 05/18/24 10:00 Nasal Cannula* 3 32 Total Intake and Output 05/17/24 05/17/24 05/18/24 15:00 23:00 07:00 Intake Total 2503 ml 920 ml 500 ml Output Total 1000 ml Balance 2503 ml 920 ml -500 ml medications Current Medications Medications Dose Ordered Sig/Meghann Route Start Time Stop Time Status Last Admin Dose Admin Ceftriaxone Sodium 50 ml @ 100 mls/hr DAILY@2100 IV 05/13/24 21:00 05/16/24 21:48 100 MLS/HR Albuterol 2.5 mg Q6HPRN PRN NEB 05/12/24 22:30 05/18/24 09:15 2.5 MG Guaifenesin/ Dextromethorphan 10 ml Q4HP PRN PO 05/12/24 22:30 05/18/24 02:55 10 ML Lisinopril 20 mg DAILY PO 05/13/24 10:00 05/18/24 09:15 20 MG Tamsulosin HCl 0.4 mg QPM PO 05/13/24 18:00 05/17/24 17:16 0.4 MG Temazepam 15 mg QHSP PRN PO 05/12/24 22:30 05/17/24 22:40 15 MG Ondansetron HCl 4 mg Q4HP PRN IV 05/12/24 22:30 Acetaminophen 650 mg Q6HP PRN PO 05/12/24 22:30 05/14/24 08:58 650 MG Diagnostic Test (Pha) 1 strip ACHS 05/13/24 17:00 05/17/24 22:00 1 STRIP Insulin Human Regular ACHS SC 05/13/24 17:00 05/17/24 22:28 4 UNITS Dextrose 50 ml UD PRN IV 05/13/24 14:15 Azithromycin 500 mg DAILY PO 05/18/24 10:00 05/18/24 09:03 500 MG Examination: GENERAL:Normal, HEENT:Normal, NECK:Normal, LUNGS:Normal, CVS:Normal, ABDOMEN:Normal, MSK:Normal, SKIN:Normal, NEURO:Normal, :Normal laboratory and microbiology Laboratory Tests 05/18/24 05:45 Test 05/18/24 05:45 Range/Units Serum Glucose 160 H 74-106 mg/dL Microbiology Date/Time Source Procedure Growth Status 05/13/24 09:10 Pleural Fluid Gram Stain - Final Resulted 05/13/24 09:10 Pleural Fluid Aerobic Culture - Preliminary Resulted Problem List/Assessment/Plan Problem List/Assessment/Plan #1 acute resp failure: cont oxygen #2 left effusion s/p thoracentesis/ empyema: surg eval- dw dr Valencia #3 ? pneumonia - gram positive/neg:iv antibiotics #4 dm: ssi #5 htn #6 obesity #7 liver cirrhosis- ? metabolic #8 wt loss #9 bph #10 transaminitis: monitor advance care planning- full code- time spent 19 mins Plan discussed with: Patient My Orders My Orders Orders - NORIS BRONSON MD Procedure Category Date Status Time Ct Chest/Ab/Pl W Con- CT 05/17/24 Resulted Iv Only 12:51 Azithromycin Tablet PHA 05/18/24 In Process (Zithromax Tablet) 10:00 * Surgical Consult CONS 05/17/24 Transmitted Date of Service: May 18, 2024 Billing Provider: NORIS BRONSON MD Common Visit Codes: [id number] INP/OBS CARE(HIGH) NORIS BRONSON MD May 18, 2024 12:10
[2024-05-18] MEDS ORDERED: VANCOMYCIN PER PHARMACY 0 MG IV SCH (12:15)
--- NOTE | 2024-05-18 12:44 | DVHPN2 ---
Progress Note Date Seen: May 18, 2024 Medical Necessity Reason Pt with a Central, PICC or Fol: No Subjective Patient reports: No new complaints Review of Systems: HEENT:Normal, CVS:Normal, RESPIRATORY:Normal, GI:Normal, :Normal, MSK:Normal, NEURO:Normal Objective vital signs Vital Sign Date Time Temp Pulse Resp B/P (MAP) Pulse Ox O2 Delivery O2 Flow Rate FiO2 05/18/24 11:53 98.6 101 18 126/75 (92) 92 98.6 05/18/24 10:00 Nasal Cannula* 3 32 Total Intake and Output 05/17/24 05/17/24 05/18/24 15:00 23:00 07:00 Intake Total 2503 ml 920 ml 500 ml Output Total 1000 ml Balance 2503 ml 920 ml -500 ml medications Current Medications Medications Dose Ordered Sig/Meghann Route Start Time Stop Time Status Last Admin Dose Admin Ceftriaxone Sodium 50 ml @ 100 mls/hr DAILY@2100 IV 05/13/24 21:00 05/16/24 21:48 100 MLS/HR Albuterol 2.5 mg Q6HPRN PRN NEB 05/12/24 22:30 05/18/24 09:15 2.5 MG Guaifenesin/ Dextromethorphan 10 ml Q4HP PRN PO 05/12/24 22:30 05/18/24 02:55 10 ML Lisinopril 20 mg DAILY PO 05/13/24 10:00 05/18/24 09:15 20 MG Tamsulosin HCl 0.4 mg QPM PO 05/13/24 18:00 05/17/24 17:16 0.4 MG Temazepam 15 mg QHSP PRN PO 05/12/24 22:30 05/17/24 22:40 15 MG Ondansetron HCl 4 mg Q4HP PRN IV 05/12/24 22:30 Acetaminophen 650 mg Q6HP PRN PO 05/12/24 22:30 05/14/24 08:58 650 MG Diagnostic Test (Pha) 1 strip ACHS 05/13/24 17:00 05/17/24 22:00 1 STRIP Insulin Human Regular ACHS SC 05/13/24 17:00 05/17/24 22:28 4 UNITS Dextrose 50 ml UD PRN IV 05/13/24 14:15 Vancomycin HCl 0 ml @ 0 mls/hr UD IV 05/18/24 12:15 UNV Examination: GENERAL:Normal, HEENT:Normal, NECK:Normal, LUNGS:Normal, CVS:Normal, ABDOMEN:Normal, MSK:Normal, SKIN:Normal, NEURO:Normal, :Normal laboratory and microbiology Laboratory Tests 05/18/24 05:45 Test 05/18/24 05:45 Range/Units Serum Glucose 160 H 74-106 mg/dL Microbiology Date/Time Source Procedure Growth Status 05/13/24 09:10 Pleural Fluid Gram Stain - Final Resulted 05/13/24 09:10 Pleural Fluid Aerobic Culture - Preliminary Resulted Problem List/Assessment/Plan Problem List/Assessment/Plan #1 acute resp failure: cont oxygen #2 left effusion s/p thoracentesis/ empyema: surg planned for am #3 ? pneumonia - gram positive/neg:iv rocephin, vanc #4 dm: ssi #5 htn #6 obesity #7 liver cirrhosis- ? metabolic #8 wt loss #9 bph #10 transaminitis: monitor advance care planning- full code- time spent 19 mins Plan discussed with: Patient My Orders My Orders Orders - NORIS BRONSON MD Procedure Category Date Status Time Ct Chest/Ab/Pl W Con- CT 05/17/24 Resulted Iv Only 12:51 * Surgical Consult CONS 05/17/24 Transmitted Vancomycin Per PHA 05/18/24 Pending Pharmacy 12:15 Vancomycin PHA 05/18/24 In Process 1.25gm/250ml 12:30 PTPTT LAB 05/18/24 Transmitted 12:41 Date of Service: May 18, 2024 Billing Provider: NORIS BRONSON MD Common Visit Codes: [id number] INP/OBS CARE(HIGH) NORIS BRONSON MD May 18, 2024 12:44
[2024-05-18 14:05] LABS: INR 1.19 (0.9-1.15); Partial Thromboplastin Time 30.2 SEC (24.5-34.5); Prothrombin Time 12.4 sec (9.3-11.8)
[2024-05-18] MEDS: VANCOMYCIN 1.25GM/250ML 250 ML IV ONE (17:10)
[2024-05-19] VITALS (10 sets, daily range): BP systolic 108–117; BP diastolic 62–66; PULSE 88–114; RESP 12–20; TEMP 98.1–98.5; O2SAT 91–99
[2024-05-19 06:23] LABS: Basophils # (auto) 0 10 ^3/uL (0-0.2); Basophils % (auto) 0.4 % (0.0-2.0); Eosinophils # (auto) 0.2 10 ^3/uL (0-0.8); Eosinophils % (auto) 2.7 % (0.0-7.0); Hematocrit 30.6 % (41.0-53.0); Hemoglobin 10.3 g/dL (13.5-17.5); Lymphocytes # (auto) 1.3 10 ^3/uL (0.4-5.4); Lymphocytes % (auto) 15.2 % (10.0-50.0); Mean Corpuscular Hemoglobin 30.1 pg (28.0-32.0); Mean Corpuscular Hgb Conc. 33.6 g/dL (32.0-36.0); Mean Corpuscular Volume 89.4 fL (80.0-100.0); Monocytes # (auto) 0.6 10 ^3/uL (0-1.3); Monocytes % (auto) 6.9 % (0.0-12.0); Neutrophils # (auto) 6.5 10 ^3/uL (1.6-8.6); Neutrophils % (auto) 74.8 % (37.0-80.0); Platelet Count (auto) 262 10^3/uL (140-450); Red Blood Cells 3.42 10^6/uL (4.5-5.90); Red Cell Distribution Width 14.9 % (11.8-14.3); White Blood Cell 8.6 10^3/uL (4.4-10.8)
[2024-05-19] MEDS: ceFAZolin 2 GM/D5W100ml 100 ML IV ONE (09:15)
[2024-05-19] MEDS ORDERED: fentaNYL CITRATE 100 MCG/2 ML VL ONE ×2 (09:38→10:39)
[2024-05-19] MEDS ORDERED: KETAMINE 50mg/ML 1ml syringe ONE (09:38)
[2024-05-19] MEDS ORDERED: MIDAZOLAM HCL 2MG/2ML 2ml VIAL (1mg/ml) ONE (09:38)
[2024-05-19] MEDS ORDERED: GLYCOPYRROLATE 0.2 MG/ML 1ML VIAL ONE (09:39)
[2024-05-19] MEDS ORDERED: PROPOFOL 10 MG/ML 20 ML IV ONE (09:39)
[2024-05-19] MEDS ORDERED: LIDOCAINE 2% (LOCAL ANESTH.) PF 5ml SDV ONE (09:39)
[2024-05-19] MEDS ORDERED: ONDANSETRON HCL 4 MG/2 ML VIAL ONE (09:39)
[2024-05-19] MEDS ORDERED: ROCURONIUM 10MG/ML 10ML VIAL IV ONE (09:39)
[2024-05-19] MEDS ORDERED: HYDROmorphone HCL 2 MG/ML VL/or syr ONE (09:57)
[2024-05-19] MEDS: FAMOTIDINE (10MG/ML) 2ML VL IV ONE (10:04)
[2024-05-19] MEDS ORDERED: SUGAMMADEX 200mg/2ml Vial (100MG/ML) IV ONE (10:16)
[2024-05-19] MEDS ORDERED: MEPERIDINE HCL (25 MG/ML) 1ML VIAL ONE (11:07)
[2024-05-19] MEDS: BUPIVACAINE 0.5% P/F INJ 10 ML VIAL ONE (11:15)
[2024-05-19] MEDS: LIDOCAINE W/ EPINEPHRINE 1% 20ML VIAL ONE (11:15)
[2024-05-19] MEDS ORDERED: ONDANSETRON HCL 4 MG/2 ML VIAL IV PRN (11:45)
[2024-05-19] MEDS: ONDANSETRON HCL 4 MG/2 ML VIAL IV ONE (11:45)
[2024-05-19] MEDS ORDERED: HYDROmorphone HCL 2 MG/ML VL/or syr IV PRN (11:45)
[2024-05-19] MEDS ORDERED: D5W/SOD CHL 0.45%/KCL 20MEQ 1,000 ML IV SCH (11:45)
[2024-05-19] MEDS: ACCU-CHEK COMFORT CURVE STRIP VI ONE (11:45)
--- NOTE | 2024-05-19 12:34 | DVHOP ---
DATE OF SURGERY: 05/19/2024 PREOPERATIVE DIAGNOSES: Loculated left pleural effusion, pleural peel empyema. POSTOPERATIVE DIAGNOSES: Loculated left pleural effusion, pleural peel empyema. SURGEON: Clement Valencia MD CLIENT RELATIONS ASSOCIATE: Rajiv Levin NP ANESTHESIA: General endotracheal, Dr. Monroy. PROCEDURE: Thoracoscopy converted to thoracotomy DESCRIPTION OF PROCEDURE: Under general anesthesia with the patient's skin prepped and draped, the patient in lateral decubitus position with the left chest facing upward, the down axilla protected with an axillary roll, the knees by pillows and padded and secured, then elbows padded and secured, the patient's chest wall prepped and draped. A 1-inch incision was made in the lateral chest at the level of the fifth interspace through which thoracoscopic examination revealed dense pleural peel and sequestering of the left part of the chest. For this reason, the attempt at breaking up the adhesions was unsuccessful leading to bleeding and for this reason, I had converted the operation to a thoracotomy. The incision was enlarged and ribs retracted after division of the muscular tissue. The patient's chest was then explored. The dissecting finger was insinuated between the chest wall and the lung. The pleural peel was stripped from the lower and upper lobes to the best of my ability. Infected fluid was evacuated from the lower chest. Following completion of the decortication, the chest was irrigated with warm saline which was then aspirated. A 40 size chest tube was placed through separate incision and directed posterosuperiorly. Chest wall was then approximated using [id number] #1 Mersilene sutures and #1 double-stranded PDS sutures. Skin and subcutaneous tissues approximated using Monocryl sutures, Dermabond glue, and Steri-Strips. The patient remained stable throughout the procedure and left the operating room following an accurate needle and sponge count. His daughter was thoroughly informed by phone. MD MATTY Encinas/ARSENIO/JOHNATHON TID: [id number] RECEIPT: [id number]
--- NOTE | 2024-05-19 12:41 | DVH ---
CHEST RADIOGRAPH Indication: post left thoracotomy, decortication Technique: Single frontal view of the chest was obtained Comparison: XY CHEST PORTABLE on DOS: 05/13/24, XY CHEST XRAY 1 VIEW on DOS: 05/13/24, XY CHEST PORTABL E on DOS: 05/13/24 FINDINGS: Lines and tubes: Left chest tube noted. Cardiomediastinal silhouette: normal Pulmonary vasculature: normal Lung expansion: normal Lung airspace: normal Lung interstitium: normal Pleura: Postsurgical changes status post left thoracotomy. Pneumothorax: no Bones: Unremarkable Other: no IMPRESSION: Postsurgical changes status post left thoracotomy. Left chest tube noted.
--- NOTE | 2024-05-19 14:56 | DVHPN2 ---
Progress Note Date Seen: May 19, 2024 Medical Necessity Reason Pt with a Central, PICC or Fol: No Subjective Patient reports: No new complaints Review of Systems: HEENT:Normal, CVS:Normal, RESPIRATORY:Normal, GI:Normal, :Normal, MSK:Normal, NEURO:Normal Objective vital signs Vital Sign Date Time Temp Pulse Resp B/P (MAP) Pulse Ox O2 Delivery O2 Flow Rate FiO2 05/19/24 13:52 99 16 131/76 (94) 94 05/19/24 11:36 98.5 98.5 05/19/24 11:36 Mask 8.0 05/19/24 04:33 21 Total Intake and Output 05/18/24 05/18/24 05/19/24 15:00 23:00 07:00 Intake Total 1250 ml 150 ml Output Total 1000 ml Balance 250 ml 150 ml medications Current Medications Medications Dose Ordered Sig/Meghann Route Start Time Stop Time Status Last Admin Dose Admin Ceftriaxone Sodium 50 ml @ 100 mls/hr DAILY@2100 IV 05/13/24 21:00 05/18/24 22:20 100 MLS/HR Albuterol 2.5 mg Q6HPRN PRN NEB 05/12/24 22:30 05/19/24 04:33 2.5 MG Guaifenesin/ Dextromethorphan 10 ml Q4HP PRN PO 05/12/24 22:30 05/18/24 22:02 10 ML Lisinopril 20 mg DAILY PO 05/13/24 10:00 05/18/24 09:15 20 MG Tamsulosin HCl 0.4 mg QPM PO 05/13/24 18:00 05/18/24 17:53 0.4 MG Temazepam 15 mg QHSP PRN PO 05/12/24 22:30 05/18/24 17:53 15 MG Acetaminophen 650 mg Q6HP PRN PO 05/12/24 22:30 05/18/24 17:44 650 MG Diagnostic Test (Pha) 1 strip ACHS 05/13/24 17:00 05/17/24 22:00 1 STRIP Insulin Human Regular ACHS SC 05/13/24 17:00 05/17/24 22:28 4 UNITS Dextrose 50 ml UD PRN IV 05/13/24 14:15 Vancomycin HCl 0 ml @ 0 mls/hr UD IV 05/18/24 12:15 Vancomycin HCl 100 ml @ 100 mls/hr Q8H IV 05/19/24 11:00 Potassium Chloride/Dextrose/ Sod Cl 1,000 ml @ 75 mls/hr [id number] IV 05/19/24 11:45 Morphine Sulfate 2 mg Q3HPRN PRN IV 05/19/24 11:45 Ondansetron HCl 4 mg Q4HPRN PRN IV 05/19/24 11:45 Pantoprazole Sodium 40 mg DAILY IV 05/20/24 10:00 Examination: GENERAL:Normal, HEENT:Normal, NECK:Normal, LUNGS:Normal, LUNGS:Abnormal (left chest tube, oxygen), CVS:Normal, ABDOMEN:Normal, MSK:Normal, SKIN:Normal, NEURO:Normal, :Normal laboratory and microbiology Laboratory Tests 05/19/24 06:06 05/18/24 05:45 Test 05/18/24 05:45 Range/Units Serum Glucose 160 H 74-106 mg/dL Microbiology Date/Time Source Procedure Growth Status 05/13/24 09:10 Pleural Fluid Gram Stain - Final Complete 05/13/24 09:10 Pleural Fluid Aerobic Culture - Final Complete Problem List/Assessment/Plan Problem List/Assessment/Plan #1 acute resp failure: cont oxygen #2 left effusion s/p thoracentesis/ empyema: s/p thoracotomy,iv antibiotics #3 ? pneumonia - gram positive/neg:iv rocephin, vanc #4 dm: ssi #5 htn #6 obesity #7 liver cirrhosis- ? metabolic #8 wt loss #9 bph #10 transaminitis: monitor #11 acute renal failure ?vasomotor nephropathy:ivf, dc lisinopril advance care planning- full code- time spent 19 mins Plan discussed with: Patient My Orders My Orders Orders - NORIS BRONSON MD Procedure Category Date Status Time Vancomycin 750mg Kit PHA 05/19/24 In Process (Vancomycin Hcl) 11:00 Vancomycin Per MORGAN 05/20/24 In Process Pharmacy Protoc 11:00 Vancomycin,Trough LAB 05/20/24 Verified 10:00 Creatinine LAB 05/20/24 Verified 04:00 Critical Care Time (mins): 37 (critical care time 37 mins) Date of Service: May 19, 2024 Billing Provider: NORIS BRONSON MD Common Visit Codes: [id number] CARE 30-74 MIN NORIS BRONSON MD May 19, 2024 14:56
[2024-05-19] MEDS: SODIUM CHLORIDE 0.9% 1,000 ML IV SCH (15:48)
[2024-05-19] MEDS: MORPHINE SULFATE INJ 2 MG/ml SYRG IV PRN (16:52)
[2024-05-19] MEDS: VANCOMYCIN 750MG KIT 100 ML IV SCH (17:30)
[2024-05-19] MEDS: HYDROmorphone HCL 2 MG/ML VL/or syr ONE (21:05)
[2024-05-19] MEDS: HYDROMORPHONE HCL 1 MG/ML INJ IV ONE (21:11)
[2024-05-20] VITALS (26 sets, daily range): BP systolic 133–164; BP diastolic 66–76; PULSE 87–116; RESP 12–24; TEMP 98–98.6; O2SAT 92–99
[2024-05-20] MEDS: VANCOMYCIN 750MG KIT 100 ML IV SCH (01:19)
[2024-05-20 04:06] LABS: Basophils # (auto) 0 10 ^3/uL (0-0.2); Basophils % (auto) 0.4 % (0.0-2.0); Eosinophils # (auto) 0 10 ^3/uL (0-0.8); Eosinophils % (auto) 0.1 % (0.0-7.0); Hematocrit 29.5 % (41.0-53.0); Hemoglobin 9.9 g/dL (13.5-17.5); Lymphocytes # (auto) 1.3 10 ^3/uL (0.4-5.4); Lymphocytes % (auto) 11.5 % (10.0-50.0); Mean Corpuscular Hemoglobin 29.8 pg (28.0-32.0); Mean Corpuscular Hgb Conc. 33.4 g/dL (32.0-36.0); Mean Corpuscular Volume 89.3 fL (80.0-100.0); Monocytes # (auto) 0.7 10 ^3/uL (0-1.3); Monocytes % (auto) 6.4 % (0.0-12.0); Neutrophils # (auto) 9.3 10 ^3/uL (1.6-8.6); Neutrophils % (auto) 81.6 % (37.0-80.0); Platelet Count (auto) 264 10^3/uL (140-450); Red Blood Cells 3.31 10^6/uL (4.5-5.90); Red Cell Distribution Width 14.9 % (11.8-14.3); White Blood Cell 11.4 10^3/uL (4.4-10.8)
[2024-05-20 04:16] LABS: Albumin 3.5 g/dL (3.2-4.8); Alkaline Phosphatase 100 U/L (46-116); Anion Gap 7 (5-15); Aspartate Aminotransferase 34 U/L (13-40); BUN/Creatinine Ratio 20.8 (10.0-20.0); Blood Urea Nitrogen 21 mg/dL (9-23); Calcium 9.1 mg/dL (8.7-10.4); Carbon Dioxide 24 mmol/L (20-31); Chloride 106 mmol/L (98-107); Potassium 4.7 mmol/L (3.5-5.1); Sodium 137 mmol/L (136-145)
[2024-05-20 04:17] LABS: Bilirubin, Total 0.3 mg/dL (0.2-1.0); Total Protein 6.7 g/dL (5.7-8.2)
[2024-05-20 04:20] LABS: Alanine Aminotransferase 62 U/L (7-40); Glucose 160 mg/dL (74-106)
[2024-05-20] MEDS: HYDROmorphone HCL 2 MG/ML VL/or syr IV PRN ×2 (05:00→16:38)
--- NOTE | 2024-05-20 05:23 | DVH ---
EXAM: XR Chest, 1 View CLINICAL INDICATION: left effusion TECHNIQUE: Frontal view of the chest. COMPARISON: XY CHEST PORTABLE on DOS: 05/19/24, XY CHEST PORTABLE on DOS: 05/13/24, XY CHEST XRAY 1 V IEW on DOS: 05/13/24 FINDINGS: LUNGS AND PLEURAL SPACES: Left basilar atelectasis or pneumonia. HEART: Unremarkable. No cardiomegaly. MEDIASTINUM: Unremarkable. Normal mediastinal contour. BONES/JOINTS: Unremarkable. No acute fracture. TUBES, LINES AND DEVICES: Stable left-sided chest tube. No pneumothorax. OTHER FINDINGS: . . . IMPRESSION: 1. Left basilar atelectasis or pneumonia. 2. Stable left-sided chest tube. No pneumothorax.
--- NOTE | 2024-05-20 09:16 | DVHPN2 ---
Progress Note Date Seen: May 20, 2024 Medical Necessity Reason Pt with a Central, PICC or Fol: No Objective vital signs Vital Sign Date Time Temp Pulse Resp B/P (MAP) Pulse Ox O2 Delivery O2 Flow Rate FiO2 05/20/24 07:00 100 18 92 Nasal Cannula 4.0 05/20/24 07:00 126/63 (84) 05/20/24 06:00 93 05/19/24 11:36 98.5 98.5 Total Intake and Output 05/19/24 05/19/24 05/20/24 15:00 23:00 07:00 Intake Total 100 ml 1000 ml Output Total 180 ml 1285 ml 2390 ml Balance -80 ml -1285 ml -1390 ml medications Current Medications Medications Dose Ordered Sig/Meghann Route Start Time Stop Time Status Last Admin Dose Admin Ceftriaxone Sodium 50 ml @ 100 mls/hr DAILY@2100 IV 05/13/24 21:00 05/19/24 21:30 100 MLS/HR Albuterol 2.5 mg Q6HPRN PRN NEB 05/12/24 22:30 05/20/24 04:00 2.5 MG Guaifenesin/ Dextromethorphan 10 ml Q4HP PRN PO 05/12/24 22:30 05/18/24 22:02 10 ML Tamsulosin HCl 0.4 mg QPM PO 05/13/24 18:00 05/19/24 18:06 0.4 MG Acetaminophen 650 mg Q6HP PRN PO 05/12/24 22:30 05/19/24 18:06 650 MG Diagnostic Test (Pha) 1 strip ACHS 05/13/24 17:00 05/20/24 07:00 1 STRIP Insulin Human Regular ACHS SC 05/13/24 17:00 05/17/24 22:28 4 UNITS Dextrose 50 ml UD PRN IV 05/13/24 14:15 Vancomycin HCl 0 ml @ 0 mls/hr UD IV 05/18/24 12:15 Ondansetron HCl 4 mg Q4HPRN PRN IV 05/19/24 11:45 Pantoprazole Sodium 40 mg DAILY IV 05/20/24 10:00 Sodium Chloride 1,000 ml @ 100 mls/hr Q10H IV 05/19/24 15:00 05/20/24 04:00 100 MLS/HR Vancomycin HCl 100 ml @ 100 mls/hr Q8H IV 05/20/24 01:00 05/20/24 01:19 100 MLS/HR Hydromorphone HCl 0.5 mg Q4HPRN PRN IV 05/20/24 05:00 05/20/24 05:00 0.5 MG laboratory and microbiology Laboratory Tests 05/20/24 03:46 Test 05/20/24 03:46 Range/Units Serum Glucose 160 H 74-106 mg/dL Problem List/Assessment/Plan Problem List/Assessment/Plan 05/20/24 breathing"much easier", good air entry, no adventitial breath sounds, chest tube without air leak, serosanguineous pleural fluid. CXR with both lungs fully inflated, no pneumothorax, chest tube in good position.can downgrade to [place], [place] to start po intake Plan discussed with: Patient LANDEN RICHTER MD May 20, 2024 09:15
[2024-05-20] MEDS: PANTOPRAZOLE 40 MG/10 ML VIAL INJ IV SCH (09:20)
--- NOTE | 2024-05-20 14:58 | DVHPN2 ---
Progress Note Date Seen: May 20, 2024 Medical Necessity Reason Pt with a Central, PICC or Fol: No Subjective Patient reports: No new complaints Review of Systems: HEENT:Normal, CVS:Normal, RESPIRATORY:Normal, GI:Normal, :Normal, MSK:Normal, NEURO:Normal Objective vital signs Vital Sign Date Time Temp Pulse Resp B/P (MAP) Pulse Ox O2 Delivery O2 Flow Rate FiO2 05/20/24 14:00 89 05/20/24 14:00 16 98 Nasal Cannula* 4 36 05/20/24 14:00 143/66 (91) 05/20/24 12:00 98.0 98.0 Total Intake and Output 05/19/24 05/19/24 05/20/24 14:59 22:59 06:59 Intake Total 100 ml 1000 ml Output Total 180 ml 1075 ml 2230 ml Balance -80 ml -1075 ml -1230 ml medications Current Medications Medications Dose Ordered Sig/Meghann Route Start Time Stop Time Status Last Admin Dose Admin Ceftriaxone Sodium 50 ml @ 100 mls/hr DAILY@2100 IV 05/13/24 21:00 05/19/24 21:30 100 MLS/HR Albuterol 2.5 mg Q6HPRN PRN NEB 05/12/24 22:30 05/20/24 04:00 2.5 MG Guaifenesin/ Dextromethorphan 10 ml Q4HP PRN PO 05/12/24 22:30 05/18/24 22:02 10 ML Tamsulosin HCl 0.4 mg QPM PO 05/13/24 18:00 05/19/24 18:06 0.4 MG Acetaminophen 650 mg Q6HP PRN PO 05/12/24 22:30 05/19/24 18:06 650 MG Diagnostic Test (Pha) 1 strip ACHS 05/13/24 17:00 05/20/24 11:30 1 STRIP Insulin Human Regular ACHS SC 05/13/24 17:00 05/17/24 22:28 4 UNITS Dextrose 50 ml UD PRN IV 05/13/24 14:15 Vancomycin HCl 0 ml @ 0 mls/hr UD IV 05/18/24 12:15 Ondansetron HCl 4 mg Q4HPRN PRN IV 05/19/24 11:45 Pantoprazole Sodium 40 mg DAILY IV 05/20/24 10:00 05/20/24 09:20 40 MG Sodium Chloride 1,000 ml @ 100 mls/hr Q10H IV 05/19/24 15:00 05/20/24 04:00 100 MLS/HR Vancomycin HCl 100 ml @ 100 mls/hr Q8H IV 05/20/24 01:00 05/20/24 09:20 100 MLS/HR Hydromorphone HCl 0.5 mg Q4HPRN PRN IV 05/20/24 05:00 05/20/24 13:10 0.5 MG Examination: GENERAL:Normal, HEENT:Normal, NECK:Normal, LUNGS:Normal, LUNGS:Abnormal (LEFT CHEST TUBE), CVS:Normal, ABDOMEN:Normal, MSK:Normal, SKIN:Normal, NEURO:Normal, :Normal laboratory and microbiology Laboratory Tests 05/20/24 03:46 Test 05/20/24 03:46 Range/Units Serum Glucose 160 H 74-106 mg/dL Microbiology Date/Time Source Procedure Growth Status 05/13/24 09:10 Pleural Fluid Gram Stain - Final Complete 05/13/24 09:10 Pleural Fluid Aerobic Culture - Final Complete Problem List/Assessment/Plan Problem List/Assessment/Plan #1 acute resp failure: cont oxygen #2 left effusion s/p thoracentesis/ empyema: s/p thoracotomy,iv antibiotics, left chest tube #3 ? pneumonia - gram positive/neg:iv rocephin, vanc #4 dm: ssi #5 htn #6 obesity #7 liver cirrhosis- ? metabolic #8 wt loss #9 bph #10 transaminitis: monitor #11 acute renal failure ?vasomotor nephropathy:ivf, dc lisinopril advance care planning- full code- time spent 19 mins Plan discussed with: Patient My Orders My Orders Orders - NORIS BRONSON MD Procedure Category Date Status Time Vancomycin 750mg Kit PHA 05/20/24 In Process (Vancomycin Hcl) 01:00 Vancomycin Per MORGAN 05/20/24 In Process Pharmacy Protoc 17:00 Date of Service: May 20, 2024 Billing Provider: NORIS BRONSON MD Common Visit Codes: [id number] INP/OBS CARE(HIGH) NORIS BRONSON MD May 20, 2024 14:58
[2024-05-20] MEDS: SODIUM CHLORIDE 0.9% 1,000 ML IV SCH (15:00)
[2024-05-20] MEDS: Ensure HIGH Protein Chocolate 8oz Bottle PO SCH (17:39)
[2024-05-20] MEDS: VANCOMYCIN 1.25GM/250ML 250 ML IV SCH (18:14)
[2024-05-21] VITALS (21 sets, daily range): BP systolic 131–171; BP diastolic 70–83; PULSE 82–110; RESP 12–19; TEMP 97.6–98.9; O2SAT 93–98
[2024-05-21 05:18] LABS: Basophils # (auto) 0.1 10 ^3/uL (0-0.2); Basophils % (auto) 0.9 % (0.0-2.0); Eosinophils # (auto) 0.3 10 ^3/uL (0-0.8); Eosinophils % (auto) 2.7 % (0.0-7.0); Hematocrit 33.4 % (41.0-53.0); Hemoglobin 10.8 g/dL (13.5-17.5); Lymphocytes # (auto) 2.2 10 ^3/uL (0.4-5.4); Lymphocytes % (auto) 19.3 % (10.0-50.0); Mean Corpuscular Hemoglobin 29.2 pg (28.0-32.0); Mean Corpuscular Hgb Conc. 32.5 g/dL (32.0-36.0); Mean Corpuscular Volume 90.1 fL (80.0-100.0); Monocytes # (auto) 0.7 10 ^3/uL (0-1.3); Monocytes % (auto) 6.4 % (0.0-12.0); Neutrophils # (auto) 8.2 10 ^3/uL (1.6-8.6); Neutrophils % (auto) 70.7 % (37.0-80.0); Platelet Count (auto) 331 10^3/uL (140-450); Red Cell Distribution Width 15.2 % (11.8-14.3); White Blood Cell 11.5 10^3/uL (4.4-10.8)
--- NOTE | 2024-05-21 05:18 | DVH ---
EXAM: XR Chest, 1 View CLINICAL INDICATION: LEFT EMPYEMA TECHNIQUE: Frontal view of the chest. COMPARISON: XY CHEST PORTABLE on DOS: 05/20/24, XY CHEST PORTABLE on DOS: 05/19/24, XY CHEST PORTABLE on DOS: 05/13/24, XY CHEST XRAY 1 VIEW on DOS: 05/13/24 FINDINGS: LUNGS AND PLEURAL SPACES: Left pleural effusion. Left basilar atelectasis or pneumonia. HEART: Unremarkable. No cardiomegaly. MEDIASTINUM: Unremarkable. Normal mediastinal contour. BONES/JOINTS: Unremarkable. No acute fracture. TUBES, LINES AND DEVICES: Left-sided chest tube. No pneumothorax. OTHER FINDINGS: . . IMPRESSION: 1. Left pleural effusion. Left basilar atelectasis or pneumonia. 2. Left-sided chest tube. No pneumothorax.
[2024-05-21 05:37] LABS: Albumin 3.9 g/dL (3.2-4.8); Alkaline Phosphatase 100 U/L (46-116); Anion Gap 8 (5-15); Aspartate Aminotransferase 31 U/L (13-40); Bilirubin, Total 0.4 mg/dL (0.2-1.0); Blood Urea Nitrogen 19 mg/dL (9-23); Carbon Dioxide 25 mmol/L (20-31); Chloride 105 mmol/L (98-107); Potassium 4.9 mmol/L (3.5-5.1); Sodium 138 mmol/L (136-145); Total Protein 7.1 g/dL (5.7-8.2)
[2024-05-21 05:39] LABS: Alanine Aminotransferase 51 U/L (7-40); Glucose 137 mg/dL (74-106)
--- NOTE | 2024-05-21 11:45 | DVHPN2 ---
Progress Note Date Seen: May 21, 2024 Medical Necessity Reason Pt with a Central, PICC or Fol: No Objective vital signs Vital Sign Date Time Temp Pulse Resp B/P (MAP) Pulse Ox O2 Delivery O2 Flow Rate FiO2 05/21/24 10:49 100 16 146/83 05/21/24 10:00 96 Nasal Cannula* 3 32 05/21/24 04:00 97.6 97.6 Total Intake and Output 05/20/24 05/20/24 05/21/24 15:00 23:00 07:00 Intake Total 800 ml 1300 ml 1000 ml Output Total 830 ml 1050 ml Balance 800 ml 470 ml -50 ml medications Current Medications Medications Dose Ordered Sig/Meghann Route Start Time Stop Time Status Last Admin Dose Admin Ceftriaxone Sodium 50 ml @ 100 mls/hr DAILY@2100 IV 05/13/24 21:00 05/19/24 21:30 100 MLS/HR Albuterol 2.5 mg Q6HPRN PRN NEB 05/12/24 22:30 05/20/24 04:00 2.5 MG Guaifenesin/ Dextromethorphan 10 ml Q4HP PRN PO 05/12/24 22:30 05/18/24 22:02 10 ML Tamsulosin HCl 0.4 mg QPM PO 05/13/24 18:00 05/20/24 16:39 0.4 MG Acetaminophen 650 mg Q6HP PRN PO 05/12/24 22:30 05/19/24 18:06 650 MG Diagnostic Test (Pha) 1 strip ACHS 05/13/24 17:00 05/21/24 07:08 1 STRIP Insulin Human Regular ACHS SC 05/13/24 17:00 05/17/24 22:28 4 UNITS Dextrose 50 ml UD PRN IV 05/13/24 14:15 Vancomycin HCl 0 ml @ 0 mls/hr UD IV 05/18/24 12:15 Ondansetron HCl 4 mg Q4HPRN PRN IV 05/19/24 11:45 Pantoprazole Sodium 40 mg DAILY IV 05/20/24 10:00 05/21/24 07:49 40 MG Sodium Chloride 1,000 ml @ 75 mls/hr [id number] IV 05/20/24 15:00 05/21/24 08:39 75 MLS/HR Enteral Nutritional Formula 240 ml BIDWM PO 05/20/24 18:00 05/21/24 08:00 240 ML Hydromorphone HCl 1 mg Q4HPRN PRN IV 05/20/24 16:30 05/21/24 08:32 1 MG Labetalol HCl 10 mg Q4H PRN IV 05/20/24 16:30 Vancomycin HCl 250 ml @ 200 mls/hr Q8H IV 05/20/24 18:00 05/21/24 07:49 200 MLS/HR laboratory and microbiology Laboratory Tests 05/21/24 04:55 Test 05/21/24 04:55 Range/Units Serum Glucose 137 H 74-106 mg/dL Problem List/Assessment/Plan Problem List/Assessment/Plan 05/20/24 breathing"much easier", good air entry, no adventitial breath sounds, chest tube without air leak, serosanguineous pleural fluid. CXR with both lungs fully inflated, no pneumothorax, chest tube in good position.can downgrade to [place], [place] to start po intake 05/21/24 ALERT, COOPERATIVE, BREATHING WELL, CHEST TUBE WITHOUT AIR LEAK, DRESSING DRY, AFEBRILE, TACHYCARDIC, SLIGHTLY HYPERTENSIVE, GOOD EFFORT WITH SPIROMETER. CAN BE TRANSFERRED TO TELEMETRY WITH BEDSIDE PULSE OXIMETRY. Plan discussed with: Patient LANDEN RICHTER MD May 21, 2024 11:45
--- NOTE | 2024-05-21 17:09 | DVHPN2 ---
Subjective 05/21: still cannot tolerate po as well. likely due to pain from chest tube. down grade to tele from icu with surgery dr woodson. wll add norco for moderate pain Reviewed: Care Plan, H&P, Labs, Medications, Previous Orders, Radiology Changes from previous H/P or p: No Changes General: Per HPI Objective Vitals Vital Signs Date Time Temp Pulse Resp B/P (MAP) Pulse Ox O2 Delivery O2 Flow Rate FiO2 05/21/24 15:47 104 20 141/83 05/21/24 14:22 98.0 95 98.0 05/21/24 11:56 Nasal Cannula* 3 32 Intake/Output Intake and Output 05/21/24 07:00 Intake Total 3100 ml Output Total 1880 ml Balance 1220 ml Intake Oral 500 ml IV Total 2600 ml Output Urine Total 1750 ml Chest Tube Drainage Total 50 ml Drainage Total 80 ml Exam rhonchi breath soundsin left, improved aeration in [place]. BS present. some pitting edema in [place]. Medications Current Medications Medications Dose Ordered Sig/Meghann Route Start Time Stop Time Status Last Admin Dose Admin Ceftriaxone Sodium 50 ml @ 100 mls/hr DAILY@2100 IV 05/13/24 21:00 05/19/24 21:30 100 MLS/HR Albuterol 2.5 mg Q6HPRN PRN NEB 05/12/24 22:30 05/20/24 04:00 2.5 MG Guaifenesin/ Dextromethorphan 10 ml Q4HP PRN PO 05/12/24 22:30 05/18/24 22:02 10 ML Tamsulosin HCl 0.4 mg QPM PO 05/13/24 18:00 05/20/24 16:39 0.4 MG Acetaminophen 650 mg Q6HP PRN PO 05/12/24 22:30 05/19/24 18:06 650 MG Diagnostic Test (Pha) 1 strip ACHS 05/13/24 17:00 05/21/24 16:56 1 STRIP Insulin Human Regular ACHS SC 05/13/24 17:00 05/21/24 16:57 3 UNITS Dextrose 50 ml UD PRN IV 05/13/24 14:15 Vancomycin HCl 0 ml @ 0 mls/hr UD IV 05/18/24 12:15 Ondansetron HCl 4 mg Q4HPRN PRN IV 05/19/24 11:45 Pantoprazole Sodium 40 mg DAILY IV 05/20/24 10:00 05/21/24 07:49 40 MG Sodium Chloride 1,000 ml @ 75 mls/hr [id number] IV 05/20/24 15:00 05/21/24 08:39 75 MLS/HR Enteral Nutritional Formula 240 ml BIDWM PO 05/20/24 18:00 05/21/24 08:00 240 ML Hydromorphone HCl 1 mg Q4HPRN PRN IV 05/20/24 16:30 05/21/24 15:47 1 MG Labetalol HCl 10 mg Q4H PRN IV 05/20/24 16:30 Vancomycin HCl 250 ml @ 200 mls/hr Q8H IV 05/20/24 18:00 05/21/24 07:49 200 MLS/HR Acetaminophen/ Hydrocodone Bitart 1 tab Q4HP PRN PO 05/21/24 15:00 Laboratory Results Laboratory Tests 05/21/24 04:55 Chemistry Test 05/21/24 04:55 Albumin 3.9 g/dL (3.2-4.8) Calcium Level 9.0 mg/dL (8.7-10.4) Total Protein 7.1 g/dL (5.7-8.2) LFT Test 05/21/24 04:55 Alanine Aminotransferase (ALT) 51 U/L (7-40) H Alkaline Phosphatase 100 U/L (46-116) Aspartate Amino Transferase (AST) 31 U/L (13-40) Total Bilirubin 0.4 mg/dL (0.2-1.0) Urinalysis Test 05/13/24 18:36 Urine Color Light-yellow (Yellow) Urine Clarity Clear (Clear) Urine pH 5.0 (5.0-9.0) Urine Specific [place] 1.021 (1.001-1.035) Urine Protein Negative (Negative) Urine Ketones Negative (Negative) Urine Blood Negative /uL (Negative) Urine Nitrite Negative (Negative) Urine Bilirubin Negative (Negative) Urine Urobilinogen Normal mg/dL (Negative) Urine Leukocyte Esterase Negative /uL (Negative) Urine RBC 6 /hpf (0 - 3) Urine Microscopic WBC 2 /HPF (0-3) Urine Squamous Epithelial Cells Few /hpf (<5) Urine Uric Acid Crystals Few /hpf (None Seen) Urine Bacteria None seen /hpf (None Seen) Urine Mucus Few (None Seen) Urine Glucose 3+ mg/dL (Normal) H Microbiology Microbiology Date/Time Source Procedure Growth Status 05/13/24 09:10 Pleural Fluid Gram Stain - Final Complete 05/13/24 09:10 Pleural Fluid Aerobic Culture - Final Complete Labs and/or images reviewed: Labs reviewed by me, Image(s) reviewed by me Assessment/Plan Assessment/Plan 05/21: still cannot tolerate po as well. likely due to pain from chest tube. down grade to tele from icu with surgery dr woodson. wll add norco for moderate pain # acute resp failure: cont oxygen # left effusion s/p thoracentesis/ empyema: s/p thoracotomy,iv antibiotics, left chest tube # ? pneumonia - gram positive/neg:iv rocephin, vanc # dm: ssi # htn # obesity # liver cirrhosis- ? metabolic # wt loss # bph # transaminitis: monitor # acute renal failure ?vasomotor nephropathy:ivf, dc lisinopril Plan discussed with: Patient My Orders Orders - GIDEON NEAL MD Procedure Category Date Status Time Hydrocodone-Acet PHA 05/21/24 In Process 10/325mg Tab ([place] 15:00 Full Liq Diet DIET 05/21/24 Transmitted Dinner Date of Service: May 21, 2024 Billing Provider: GIDEON NEAL MD Common Visit Codes: [id number] INP/OBS CARE(HIGH) GIDEON NEAL MD May 21, 2024 17:09
[2024-05-22] VITALS (12 sets, daily range): BP systolic 121–140; BP diastolic 76–82; PULSE 83–105; RESP 15–20; TEMP 97.8–98.3; O2SAT 94–100
[2024-05-22] MEDS: HYDROcodone-ACET 10/325MG TAB PO PRN (01:50)
[2024-05-22 08:12] LABS: Albumin 3.9 g/dL (3.2-4.8); Alkaline Phosphatase 102 U/L (46-116); Anion Gap 10 (5-15); Aspartate Aminotransferase 32 U/L (13-40); BUN/Creatinine Ratio 13.4 (10.0-20.0); Blood Urea Nitrogen 15 mg/dL (9-23); Calcium 9.4 mg/dL (8.7-10.4); Carbon Dioxide 24 mmol/L (20-31); Chloride 105 mmol/L (98-107); Potassium 4.6 mmol/L (3.5-5.1); Sodium 139 mmol/L (136-145)
[2024-05-22 08:13] LABS: Bilirubin, Total 0.3 mg/dL (0.2-1.0); Total Protein 7.2 g/dL (5.7-8.2)
[2024-05-22 08:18] LABS: Alanine Aminotransferase 46 U/L (7-40); Glucose 131 mg/dL (74-106)
[2024-05-22] MEDS: VANCOMYCIN 1GM/250ML KIT 250 ML IV SCH (08:41)
[2024-05-22 10:45] LABS: Basophils # (auto) 0 10 ^3/uL (0-0.2); Basophils % (auto) 0.4 % (0.0-2.0); Eosinophils # (auto) 0.4 10 ^3/uL (0-0.8); Eosinophils % (auto) 4.9 % (0.0-7.0); Hematocrit 30.1 % (41.0-53.0); Hemoglobin 9.8 g/dL (13.5-17.5); Lymphocytes # (auto) 1.6 10 ^3/uL (0.4-5.4); Lymphocytes % (auto) 19.2 % (10.0-50.0); Mean Corpuscular Hemoglobin 29.2 pg (28.0-32.0); Mean Corpuscular Hgb Conc. 32.6 g/dL (32.0-36.0); Mean Corpuscular Volume 89.5 fL (80.0-100.0); Monocytes # (auto) 0.6 10 ^3/uL (0-1.3); Monocytes % (auto) 6.6 % (0.0-12.0); Neutrophils # (auto) 5.8 10 ^3/uL (1.6-8.6); Neutrophils % (auto) 68.9 % (37.0-80.0); Nucleated Red Blood Cells % 0.1 %; Platelet Count (auto) 274 10^3/uL (140-450); Red Blood Cells 3.36 10^6/uL (4.5-5.90); White Blood Cell 8.4 10^3/uL (4.4-10.8)
--- NOTE | 2024-05-22 11:56 | DVHPN2 ---
Progress Note Date Seen: May 22, 2024 Medical Necessity Reason Pt with a Central, PICC or Fol: No Objective vital signs Vital Sign Date Time Temp Pulse Resp B/P (MAP) Pulse Ox O2 Delivery O2 Flow Rate FiO2 05/22/24 10:30 83 15 100 05/22/24 10:24 Nasal Cannula* 3 32 05/22/24 09:00 140/79 05/22/24 09:00 98.1 98.1 Total Intake and Output 05/21/24 05/21/24 05/22/24 15:00 23:00 07:00 Intake Total 650 ml 315 ml Output Total 800 ml 350 ml 50 ml Balance -150 ml -35 ml -50 ml medications Current Medications Medications Dose Ordered Sig/Meghann Route Start Time Stop Time Status Last Admin Dose Admin Ceftriaxone Sodium 50 ml @ 100 mls/hr DAILY@2100 IV 05/13/24 21:00 05/21/24 20:45 100 MLS/HR Albuterol 2.5 mg Q6HPRN PRN NEB 05/12/24 22:30 05/22/24 10:24 2.5 MG Guaifenesin/ Dextromethorphan 10 ml Q4HP PRN PO 05/12/24 22:30 05/18/24 22:02 10 ML Tamsulosin HCl 0.4 mg QPM PO 05/13/24 18:00 05/21/24 17:37 0.4 MG Acetaminophen 650 mg Q6HP PRN PO 05/12/24 22:30 05/19/24 18:06 650 MG Diagnostic Test (Pha) 1 strip ACHS 05/13/24 17:00 05/22/24 05:38 1 STRIP Insulin Human Regular ACHS SC 05/13/24 17:00 05/22/24 05:40 2 UNITS Dextrose 50 ml UD PRN IV 05/13/24 14:15 Vancomycin HCl 0 ml @ 0 mls/hr UD IV 05/18/24 12:15 Ondansetron HCl 4 mg Q4HPRN PRN IV 05/19/24 11:45 Pantoprazole Sodium 40 mg DAILY IV 05/20/24 10:00 05/22/24 11:16 40 MG Sodium Chloride 1,000 ml @ 75 mls/hr [id number] IV 05/20/24 15:00 05/22/24 07:04 75 MLS/HR Enteral Nutritional Formula 240 ml BIDWM PO 05/20/24 18:00 05/22/24 08:16 240 ML Hydromorphone HCl 1 mg Q4HPRN PRN IV 05/20/24 16:30 05/22/24 07:23 1 MG Labetalol HCl 10 mg Q4H PRN IV 05/20/24 16:30 Acetaminophen/ Hydrocodone Bitart 1 tab Q4HP PRN PO 05/21/24 15:00 05/22/24 11:28 1 TAB Vancomycin HCl 250 ml @ 250 mls/hr Q10H IV 05/22/24 06:00 05/22/24 08:41 250 MLS/HR laboratory and microbiology Laboratory Tests 05/22/24 10:22 05/22/24 06:00 Test 05/22/24 06:00 Range/Units Serum Glucose 131 H 74-106 mg/dL Problem List/Assessment/Plan Problem List/Assessment/Plan 05/20/24 breathing"much easier", good air entry, no adventitial breath sounds, chest tube without air leak, serosanguineous pleural fluid. CXR with both lungs fully inflated, no pneumothorax, chest tube in good position.can downgrade to [place], [place] to start po intake 05/21/24 ALERT, COOPERATIVE, BREATHING WELL, CHEST TUBE WITHOUT AIR LEAK, DRESSING DRY, AFEBRILE, TACHYCARDIC, SLIGHTLY HYPERTENSIVE, GOOD EFFORT WITH SPIROMETER. CAN BE TRANSFERRED TO TELEMETRY WITH BEDSIDE PULSE OXIMETRY. 05/22/24 FEELS WELL, HAS BEEN TOLERATING PO LIQUIDS AND WISHES TO STAY WITH THAT ,GOOD INSPIRATORY EFFORT, CXR STABLE, CHEST TUBE WITH 50CC /24 HOURS OF SERO SANGUINEOUS FLUID, Plan discussed with: Patient LANDEN RICHTER MD May 22, 2024 11:56
--- NOTE | 2024-05-22 11:59 | MEDREC ---
[facility] ASP Intervention Section I [facility] ASP Intervention: Deescalate AB based on CS (PATIENT IS AFEBRILE, WBC IS WNL. THE FINAL PLEURAL FLUID CULTURE SHOWED NO GROWTH. PLEASE CONSIDER DE- ESCALATE OR DISCONTINUING ANTIBIOTICS IF THERE IS NO MORE CONCERN FOR INFECTIONS) JAIME MONTE May 22, 2024 11:59
--- NOTE | 2024-05-22 23:56 | DVHPN2 ---
Subjective 05/21: still cannot tolerate po as well. likely due to pain from chest tube. down grade to tele from icu with surgery dr woodson. wll add norco for moderate pain Reviewed: Care Plan, H&P, Labs, Medications, Previous Orders, Radiology Changes from previous H/P or p: No Changes General: Per HPI Objective Vitals Vital Signs Date Time Temp Pulse Resp B/P (MAP) Pulse Ox O2 Delivery O2 Flow Rate FiO2 05/22/24 23:19 84 17 128/76 05/22/24 20:00 98 Nasal Cannula* 4 36 05/22/24 17:00 98.0 98.0 Intake/Output Intake and Output 05/22/24 06:59 Intake Total 1040 ml Output Total 1200 ml Balance -160 ml Intake Oral 315 ml IV Total 725 ml Output Urine Total 1150 ml Chest Tube Drainage Total 50 ml Exam rhonchi breath soundsin left, improved aeration in [place]. BS present. some pitting edema in [place]. Medications Current Medications Medications Dose Ordered Sig/Meghann Route Start Time Stop Time Status Last Admin Dose Admin Ceftriaxone Sodium 50 ml @ 100 mls/hr DAILY@2100 IV 05/13/24 21:00 05/22/24 20:56 100 MLS/HR Albuterol 2.5 mg Q6HPRN PRN NEB 05/12/24 22:30 05/22/24 10:24 2.5 MG Guaifenesin/ Dextromethorphan 10 ml Q4HP PRN PO 05/12/24 22:30 05/18/24 22:02 10 ML Tamsulosin HCl 0.4 mg QPM PO 05/13/24 18:00 05/22/24 18:01 0.4 MG Acetaminophen 650 mg Q6HP PRN PO 05/12/24 22:30 05/19/24 18:06 650 MG Diagnostic Test (Pha) 1 strip ACHS 05/13/24 17:00 05/22/24 20:59 1 STRIP Insulin Human Regular ACHS SC 05/13/24 17:00 05/22/24 21:00 2 UNITS Dextrose 50 ml UD PRN IV 05/13/24 14:15 Vancomycin HCl 0 ml @ 0 mls/hr UD IV 05/18/24 12:15 Ondansetron HCl 4 mg Q4HPRN PRN IV 05/19/24 11:45 Pantoprazole Sodium 40 mg DAILY IV 05/20/24 10:00 05/22/24 11:16 40 MG Sodium Chloride 1,000 ml @ 75 mls/hr [id number] IV 05/20/24 15:00 05/22/24 07:04 75 MLS/HR Enteral Nutritional Formula 240 ml BIDWM PO 05/20/24 18:00 05/22/24 08:16 240 ML Hydromorphone HCl 1 mg Q4HPRN PRN IV 05/20/24 16:30 05/22/24 23:19 1 MG Labetalol HCl 10 mg Q4H PRN IV 05/20/24 16:30 Acetaminophen/ Hydrocodone Bitart 1 tab Q4HP PRN PO 05/21/24 15:00 05/22/24 17:00 1 TAB Vancomycin HCl 250 ml @ 250 mls/hr Q10H IV 05/22/24 06:00 05/22/24 16:13 250 MLS/HR Laboratory Results Laboratory Tests 05/22/24 06:00 05/22/24 10:22 Chemistry Test 05/22/24 06:00 Albumin 3.9 g/dL (3.2-4.8) Calcium Level 9.4 mg/dL (8.7-10.4) Total Protein 7.2 g/dL (5.7-8.2) LFT Test 05/22/24 06:00 Alanine Aminotransferase (ALT) 46 U/L (7-40) H Alkaline Phosphatase 102 U/L (46-116) Aspartate Amino Transferase (AST) 32 U/L (13-40) Total Bilirubin 0.3 mg/dL (0.2-1.0) Urinalysis Test 05/13/24 18:36 Urine Color Light-yellow (Yellow) Urine Clarity Clear (Clear) Urine pH 5.0 (5.0-9.0) Urine Specific [place] 1.021 (1.001-1.035) Urine Protein Negative (Negative) Urine Ketones Negative (Negative) Urine Blood Negative /uL (Negative) Urine Nitrite Negative (Negative) Urine Bilirubin Negative (Negative) Urine Urobilinogen Normal mg/dL (Negative) Urine Leukocyte Esterase Negative /uL (Negative) Urine RBC 6 /hpf (0 - 3) Urine Microscopic WBC 2 /HPF (0-3) Urine Squamous Epithelial Cells Few /hpf (<5) Urine Uric Acid Crystals Few /hpf (None Seen) Urine Bacteria None seen /hpf (None Seen) Urine Mucus Few (None Seen) Urine Glucose 3+ mg/dL (Normal) H Microbiology Microbiology Date/Time Source Procedure Growth Status 05/13/24 09:10 Pleural Fluid Gram Stain - Final Complete 05/13/24 09:10 Pleural Fluid Aerobic Culture - Final Complete Assessment/Plan Assessment/Plan 05/21: still cannot tolerate po as well. likely due to pain from chest tube. down grade to tele from icu with surgery dr woodson. wll add norco for moderate pain # acute resp failure: cont oxygen # left effusion s/p thoracentesis/ empyema: s/p thoracotomy,iv antibiotics, left chest tube # ? pneumonia - gram positive/neg:iv rocephin, vanc # dm: ssi # htn # obesity # liver cirrhosis- ? metabolic # wt loss # bph # transaminitis: monitor # acute renal failure ?vasomotor nephropathy:ivf, dc lisinopril Plan discussed with: Patient Date of Service: May 21, 2024 Billing Provider: GIDEON NEAL MD Common Visit Codes: [id number] INP/OBS CARE(HIGH) GIDEON NEAL MD May 22, 2024 23:56
[2024-05-23] VITALS (10 sets, daily range): BP systolic 119–157; BP diastolic 66–94; PULSE 88–124; RESP 14–20; TEMP 97.4–98.5; O2SAT 92–96
[2024-05-23 05:58] LABS: Basophils # (auto) 0 10 ^3/uL (0-0.2); Basophils % (auto) 0.4 % (0.0-2.0); Eosinophils # (auto) 0.4 10 ^3/uL (0-0.8); Eosinophils % (auto) 5.3 % (0.0-7.0); Hemoglobin 10.4 g/dL (13.5-17.5); Lymphocytes # (auto) 1.5 10 ^3/uL (0.4-5.4); Lymphocytes % (auto) 20.3 % (10.0-50.0); Mean Corpuscular Hemoglobin 29.7 pg (28.0-32.0); Mean Corpuscular Hgb Conc. 33.4 g/dL (32.0-36.0); Mean Corpuscular Volume 88.8 fL (80.0-100.0); Monocytes # (auto) 0.5 10 ^3/uL (0-1.3); Monocytes % (auto) 6.7 % (0.0-12.0); Neutrophils # (auto) 4.9 10 ^3/uL (1.6-8.6); Neutrophils % (auto) 67.3 % (37.0-80.0); Nucleated Red Blood Cells % 0.1 %; Platelet Count (auto) 277 10^3/uL (140-450); Red Blood Cells 3.49 10^6/uL (4.5-5.90); White Blood Cell 7.3 10^3/uL (4.4-10.8)
[2024-05-23 06:04] LABS: Albumin 3.8 g/dL (3.2-4.8); Alkaline Phosphatase 100 U/L (46-116); Anion Gap 8 (5-15); Aspartate Aminotransferase 30 U/L (13-40); BUN/Creatinine Ratio 15.7 (10.0-20.0); Bilirubin, Total 0.4 mg/dL (0.2-1.0); Blood Urea Nitrogen 17 mg/dL (9-23); Calcium 9.3 mg/dL (8.7-10.4); Carbon Dioxide 25 mmol/L (20-31); Chloride 105 mmol/L (98-107); Potassium 4.4 mmol/L (3.5-5.1); Sodium 138 mmol/L (136-145); Total Protein 7.1 g/dL (5.7-8.2)
[2024-05-23 06:26] LABS: Alanine Aminotransferase 48 U/L (7-40); Glucose 139 mg/dL (74-106)
--- NOTE | 2024-05-23 11:54 | DVHPN2 ---
Progress Note Date Seen: May 23, 2024 Medical Necessity Reason Pt with a Central, PICC or Fol: No Objective vital signs Vital Sign Date Time Temp Pulse Resp B/P (MAP) Pulse Ox O2 Delivery O2 Flow Rate FiO2 05/23/24 11:50 102 16 120/78 05/23/24 09:07 96 Nasal Cannula 2.0 05/23/24 09:07 28 05/23/24 09:00 97.4 97.4 Total Intake and Output 05/22/24 05/22/24 05/23/24 15:00 23:00 07:00 Intake Total 960 ml 930 ml Output Total 775 ml Balance 960 ml 155 ml medications Current Medications Medications Dose Ordered Sig/Meghann Route Start Time Stop Time Status Last Admin Dose Admin Ceftriaxone Sodium 50 ml @ 100 mls/hr DAILY@2100 IV 05/13/24 21:00 05/22/24 20:56 100 MLS/HR Albuterol 2.5 mg Q6HPRN PRN NEB 05/12/24 22:30 05/22/24 10:24 2.5 MG Guaifenesin/ Dextromethorphan 10 ml Q4HP PRN PO 05/12/24 22:30 05/18/24 22:02 10 ML Tamsulosin HCl 0.4 mg QPM PO 05/13/24 18:00 05/22/24 18:01 0.4 MG Acetaminophen 650 mg Q6HP PRN PO 05/12/24 22:30 05/19/24 18:06 650 MG Diagnostic Test (Pha) 1 strip ACHS 05/13/24 17:00 05/23/24 11:50 1 STRIP Insulin Human Regular ACHS SC 05/13/24 17:00 05/22/24 21:00 2 UNITS Dextrose 50 ml UD PRN IV 05/13/24 14:15 Vancomycin HCl 0 ml @ 0 mls/hr UD IV 05/18/24 12:15 Ondansetron HCl 4 mg Q4HPRN PRN IV 05/19/24 11:45 Pantoprazole Sodium 40 mg DAILY IV 05/20/24 10:00 05/23/24 11:49 40 MG Sodium Chloride 1,000 ml @ 75 mls/hr [id number] IV 05/20/24 15:00 05/23/24 11:50 75 MLS/HR Enteral Nutritional Formula 240 ml BIDWM PO 05/20/24 18:00 05/23/24 11:49 240 ML Hydromorphone HCl 1 mg Q4HPRN PRN IV 05/20/24 16:30 05/23/24 11:50 1 MG Labetalol HCl 10 mg Q4H PRN IV 05/20/24 16:30 Acetaminophen/ Hydrocodone Bitart 1 tab Q4HP PRN PO 05/21/24 15:00 05/23/24 03:21 1 TAB Vancomycin HCl 250 ml @ 250 mls/hr Q10H IV 05/22/24 06:00 05/23/24 03:12 250 MLS/HR laboratory and microbiology Laboratory Tests 05/23/24 05:16 Test 05/23/24 05:16 Range/Units Serum Glucose 139 H 74-106 mg/dL Problem List/Assessment/Plan Problem List/Assessment/Plan 05/20/24 breathing"much easier", good air entry, no adventitial breath sounds, chest tube without air leak, serosanguineous pleural fluid. CXR with both lungs fully inflated, no pneumothorax, chest tube in good position.can downgrade to [place], [place] to start po intake 05/21/24 ALERT, COOPERATIVE, BREATHING WELL, CHEST TUBE WITHOUT AIR LEAK, DRESSING DRY, AFEBRILE, TACHYCARDIC, SLIGHTLY HYPERTENSIVE, GOOD EFFORT WITH SPIROMETER. CAN BE TRANSFERRED TO TELEMETRY WITH BEDSIDE PULSE OXIMETRY. 05/22/24 FEELS WELL, HAS BEEN TOLERATING PO LIQUIDS AND WISHES TO STAY WITH THAT ,GOOD INSPIRATORY EFFORT, CXR STABLE, CHEST TUBE WITH 50CC /24 HOURS OF SERO SANGUINEOUS FLUID, 05/23/24 feels well, has ambulated, had a bowel movement, voiding tolerating po, CT output 75 cc(serous) Plan discussed with: Patient LANDEN RICHTER MD May 23, 2024 11:54
--- NOTE | 2024-05-23 19:05 | DVHPN2 ---
Subjective Update 05/23 05/21: still cannot tolerate po as well. likely due to pain from chest tube. down grade to tele from icu with surgery dr woodson. wll add norco for moderate pain 05/22 patient doing well, no complaints, tolerating diet. Has pain at the chest tube insertion sites. Chest tubes having drainage continued, surgery following 05/23 patient doing well, no complaints, tolerating diet. Has pain at the chest tube insertion sites. Last24 hour drainages approximately 100 cc. Surgery still keeping the chest tubes in place and falling for tomorrow. Labs are stable. Reviewed: Care Plan, H&P, Labs, Medications, Previous Orders, Radiology Changes from previous H/P or p: No Changes General: Per HPI Objective Vitals Vital Signs Date Time Temp Pulse Resp B/P (MAP) Pulse Ox O2 Delivery O2 Flow Rate FiO2 05/23/24 18:29 90 20 142/83 05/23/24 17:00 98.4 95 98.4 05/23/24 10:00 Nasal Cannula* 2 28 Intake/Output Intake and Output 05/23/24 07:00 Intake Total 1890 ml Output Total 775 ml Balance 1115 ml Intake Oral 1840 ml IV Total 50 ml Output Urine Total 700 ml Chest Tube Drainage Total 75 ml Exam rhonchi breath soundsin left, improved aeration in [place]. BS present. some pitting edema in [place]. Medications Current Medications Medications Dose Ordered Sig/Meghann Route Start Time Stop Time Status Last Admin Dose Admin Ceftriaxone Sodium 50 ml @ 100 mls/hr DAILY@2100 IV 05/13/24 21:00 05/22/24 20:56 100 MLS/HR Albuterol 2.5 mg Q6HPRN PRN NEB 05/12/24 22:30 05/22/24 10:24 2.5 MG Guaifenesin/ Dextromethorphan 10 ml Q4HP PRN PO 05/12/24 22:30 05/18/24 22:02 10 ML Tamsulosin HCl 0.4 mg QPM PO 05/13/24 18:00 05/23/24 18:29 0.4 MG Acetaminophen 650 mg Q6HP PRN PO 05/12/24 22:30 05/19/24 18:06 650 MG Diagnostic Test (Pha) 1 strip ACHS 05/13/24 17:00 05/23/24 17:40 1 STRIP Insulin Human Regular ACHS SC 05/13/24 17:00 05/23/24 11:30 3 UNITS Dextrose 50 ml UD PRN IV 05/13/24 14:15 Vancomycin HCl 0 ml @ 0 mls/hr UD IV 05/18/24 12:15 Ondansetron HCl 4 mg Q4HPRN PRN IV 05/19/24 11:45 Pantoprazole Sodium 40 mg DAILY IV 05/20/24 10:00 05/23/24 11:49 40 MG Sodium Chloride 1,000 ml @ 75 mls/hr [id number] IV 05/20/24 15:00 05/23/24 11:50 75 MLS/HR Enteral Nutritional Formula 240 ml BIDWM PO 05/20/24 18:00 05/23/24 18:30 240 ML Hydromorphone HCl 1 mg Q4HPRN PRN IV 05/20/24 16:30 05/23/24 18:29 1 MG Labetalol HCl 10 mg Q4H PRN IV 05/20/24 16:30 Acetaminophen/ Hydrocodone Bitart 1 tab Q4HP PRN PO 05/21/24 15:00 05/23/24 15:32 1 TAB Vancomycin HCl 250 ml @ 250 mls/hr Q10H IV 05/22/24 06:00 05/23/24 12:00 250 MLS/HR Laboratory Results Laboratory Tests 05/23/24 05:16 Chemistry Test 05/23/24 05:16 Albumin 3.8 g/dL (3.2-4.8) Calcium Level 9.3 mg/dL (8.7-10.4) Total Protein 7.1 g/dL (5.7-8.2) LFT Test 05/23/24 05:16 Alanine Aminotransferase (ALT) 48 U/L (7-40) H Alkaline Phosphatase 100 U/L (46-116) Aspartate Amino Transferase (AST) 30 U/L (13-40) Total Bilirubin 0.4 mg/dL (0.2-1.0) Urinalysis Test 05/13/24 18:36 Urine Color Light-yellow (Yellow) Urine Clarity Clear (Clear) Urine pH 5.0 (5.0-9.0) Urine Specific [place] 1.021 (1.001-1.035) Urine Protein Negative (Negative) Urine Ketones Negative (Negative) Urine Blood Negative /uL (Negative) Urine Nitrite Negative (Negative) Urine Bilirubin Negative (Negative) Urine Urobilinogen Normal mg/dL (Negative) Urine Leukocyte Esterase Negative /uL (Negative) Urine RBC 6 /hpf (0 - 3) Urine Microscopic WBC 2 /HPF (0-3) Urine Squamous Epithelial Cells Few /hpf (<5) Urine Uric Acid Crystals Few /hpf (None Seen) Urine Bacteria None seen /hpf (None Seen) Urine Mucus Few (None Seen) Urine Glucose 3+ mg/dL (Normal) H Microbiology Microbiology Date/Time Source Procedure Growth Status 05/13/24 09:10 Pleural Fluid Gram Stain - Final Complete 05/13/24 09:10 Pleural Fluid Aerobic Culture - Final Complete Labs and/or images reviewed: Labs reviewed by me, Image(s) reviewed by me Assessment/Plan Assessment/Plan 2/2 patient doing well, no complaints, tolerating diet. Has pain at the chest tube insertion sites. Last24 hour drainages approximately 100 cc. Surgery still keeping the chest tubes in place and falling for tomorrow. Labs are stable. # acute resp failure: cont oxygen # left effusion s/p thoracentesis/ empyema: s/p thoracotomy,iv antibiotics, left chest tube # ? pneumonia - gram positive/neg:iv rocephin, vanc # dm: ssi # htn # obesity # liver cirrhosis- ? metabolic # wt loss # bph # transaminitis: monitor # acute renal failure ?vasomotor nephropathy:ivf, dc lisinopril Diet full liquid diet DVT-Lovenox GI prophylaxis -Protonix IV 40 daily Med tele Full code Plan discussed with: Patient Date of Service: May 23, 2024 Billing Provider: GIDEON NEAL MD Common Visit Codes: [id number] INP/OBS CARE(HIGH) GIDEON NEAL MD May 23, 2024 19:05
[2024-05-24] VITALS (12 sets, daily range): BP systolic 117–158; BP diastolic 71–85; PULSE 74–100; RESP 16–20; TEMP 97.9–98.6; O2SAT 94–97
[2024-05-24 06:16] LABS: Basophils # (auto) 0 10 ^3/uL (0-0.2); Basophils % (auto) 0.6 % (0.0-2.0); Eosinophils # (auto) 0.4 10 ^3/uL (0-0.8); Eosinophils % (auto) 5.6 % (0.0-7.0); Hematocrit 29.5 % (41.0-53.0); Hemoglobin 9.8 g/dL (13.5-17.5); Lymphocytes # (auto) 1.8 10 ^3/uL (0.4-5.4); Lymphocytes % (auto) 28.1 % (10.0-50.0); Mean Corpuscular Hemoglobin 29.9 pg (28.0-32.0); Mean Corpuscular Volume 90.4 fL (80.0-100.0); Monocytes # (auto) 0.6 10 ^3/uL (0-1.3); Monocytes % (auto) 8.7 % (0.0-12.0); Neutrophils # (auto) 3.8 10 ^3/uL (1.6-8.6); Platelet Count (auto) 241 10^3/uL (140-450); Red Blood Cells 3.26 10^6/uL (4.5-5.90); Red Cell Distribution Width 15.1 % (11.8-14.3); White Blood Cell 6.6 10^3/uL (4.4-10.8)
[2024-05-24 06:46] LABS: Albumin 3.7 g/dL (3.2-4.8); Alkaline Phosphatase 98 U/L (46-116); Anion Gap 8 (5-15); Aspartate Aminotransferase 31 U/L (13-40); BUN/Creatinine Ratio 15.2 (10.0-20.0); Blood Urea Nitrogen 16 mg/dL (9-23); Calcium 9.3 mg/dL (8.7-10.4); Carbon Dioxide 26 mmol/L (20-31); Chloride 105 mmol/L (98-107); Potassium 4.1 mmol/L (3.5-5.1); Sodium 139 mmol/L (136-145)
[2024-05-24 06:47] LABS: Bilirubin, Total 0.4 mg/dL (0.2-1.0); Total Protein 6.8 g/dL (5.7-8.2)
[2024-05-24 06:48] LABS: Alanine Aminotransferase 45 U/L (7-40); Glucose 126 mg/dL (74-106)
--- NOTE | 2024-05-24 08:54 | DVHPN2 ---
Progress Note Date Seen: May 24, 2024 Medical Necessity Reason Pt with a Central, PICC or Fol: No Subjective Patient reports: No new complaints, Feels better Review of Systems: HEENT:Normal, CVS:Normal, RESPIRATORY:Normal, GI:Normal, :Normal, MSK:Normal, NEURO:Normal Objective vital signs Vital Sign Date Time Temp Pulse Resp B/P (MAP) Pulse Ox O2 Delivery O2 Flow Rate FiO2 05/24/24 05:52 79 16 119/75 05/24/24 05:00 98.6 96 98.6 05/24/24 01:04 Nasal Cannula* 2 28 Total Intake and Output 05/23/24 05/23/24 05/24/24 15:00 23:00 07:00 Intake Total 250 ml 50 ml 1230 ml Output Total 60 ml 1210 ml Balance 250 ml -10 ml 20 ml medications Current Medications Medications Dose Ordered Sig/Meghann Route Start Time Stop Time Status Last Admin Dose Admin Ceftriaxone Sodium 50 ml @ 100 mls/hr DAILY@2100 IV 05/13/24 21:00 05/23/24 20:02 100 MLS/HR Albuterol 2.5 mg Q6HPRN PRN NEB 05/12/24 22:30 05/22/24 10:24 2.5 MG Guaifenesin/ Dextromethorphan 10 ml Q4HP PRN PO 05/12/24 22:30 05/18/24 22:02 10 ML Tamsulosin HCl 0.4 mg QPM PO 05/13/24 18:00 05/23/24 18:29 0.4 MG Acetaminophen 650 mg Q6HP PRN PO 05/12/24 22:30 05/19/24 18:06 650 MG Diagnostic Test (Pha) 1 strip ACHS 05/13/24 17:00 05/24/24 06:10 1 STRIP Insulin Human Regular ACHS SC 05/13/24 17:00 05/23/24 11:30 3 UNITS Dextrose 50 ml UD PRN IV 05/13/24 14:15 Vancomycin HCl 0 ml @ 0 mls/hr UD IV 05/18/24 12:15 Ondansetron HCl 4 mg Q4HPRN PRN IV 05/19/24 11:45 Pantoprazole Sodium 40 mg DAILY IV 05/20/24 10:00 05/23/24 11:49 40 MG Sodium Chloride 1,000 ml @ 75 mls/hr [id number] IV 05/20/24 15:00 05/23/24 11:50 75 MLS/HR Enteral Nutritional Formula 240 ml BIDWM PO 05/20/24 18:00 05/24/24 08:17 240 ML Hydromorphone HCl 1 mg Q4HPRN PRN IV 05/20/24 16:30 05/24/24 05:22 1 MG Labetalol HCl 10 mg Q4H PRN IV 05/20/24 16:30 Acetaminophen/ Hydrocodone Bitart 1 tab Q4HP PRN PO 05/21/24 15:00 05/24/24 00:40 1 TAB Vancomycin HCl 250 ml @ 250 mls/hr Q10H IV 05/22/24 06:00 05/24/24 08:17 250 MLS/HR Examination: GENERAL:Normal, HEENT:Normal, NECK:Normal, LUNGS:Normal, CVS:Normal, ABDOMEN:Normal, MSK:Normal, SKIN:Normal, NEURO:Normal laboratory and microbiology Laboratory Tests 05/24/24 05:11 Test 05/24/24 05:11 Range/Units Serum Glucose 126 H 74-106 mg/dL Problem List/Assessment/Plan Problem List/Assessment/Plan 05/24/24 no new complaints , patient doing well, no leak, output decreasing , possibly remove chest tube tomorrow , Chest xray in the Am Dr. [place] agrees with plan Plan discussed with: Patient Dietary Evaluation Review Recommendations by RD: Dietary education by RD Comments: 1) Substitute Ensure high protein bid for Glucerna bid d/t DM dx 2) Advance diet to CCHO 60g when medically feasible, pending [employer] approval 3) Refer to outpatient RD/CDCES for weight management Expected Outcomes/Goals: 1) labs to improve 2) diet to advance 3) f/u in 3-5 days BELA SANDOVAL NP May 24, 2024 08:54
--- NOTE | 2024-05-24 13:05 | DVHPN2 ---
Progress Note Date Seen: May 24, 2024 Medical Necessity Reason Pt with a Central, PICC or Fol: No Subjective Patient reports: No new complaints Review of Systems: HEENT:Normal, CVS:Normal, RESPIRATORY:Normal, GI:Normal, :Normal, MSK:Normal, NEURO:Normal Objective vital signs Vital Sign Date Time Temp Pulse Resp B/P (MAP) Pulse Ox O2 Delivery O2 Flow Rate FiO2 05/24/24 10:00 96 Nasal Cannula 2.0 05/24/24 10:00 28 05/24/24 09:30 100 20 156/85 05/24/24 09:00 98.0 98.0 Total Intake and Output 05/23/24 05/23/24 05/24/24 15:00 23:00 07:00 Intake Total 250 ml 50 ml 1230 ml Output Total 60 ml 1210 ml Balance 250 ml -10 ml 20 ml medications Current Medications Medications Dose Ordered Sig/Meghann Route Start Time Stop Time Status Last Admin Dose Admin Ceftriaxone Sodium 50 ml @ 100 mls/hr DAILY@2100 IV 05/13/24 21:00 05/23/24 20:02 100 MLS/HR Guaifenesin/ Dextromethorphan 10 ml Q4HP PRN PO 05/12/24 22:30 05/18/24 22:02 10 ML Tamsulosin HCl 0.4 mg QPM PO 05/13/24 18:00 05/23/24 18:29 0.4 MG Acetaminophen 650 mg Q6HP PRN PO 05/12/24 22:30 05/19/24 18:06 650 MG Diagnostic Test (Pha) 1 strip ACHS 05/13/24 17:00 05/24/24 11:30 1 STRIP Insulin Human Regular ACHS SC 05/13/24 17:00 05/23/24 11:30 3 UNITS Dextrose 50 ml UD PRN IV 05/13/24 14:15 Vancomycin HCl 0 ml @ 0 mls/hr UD IV 05/18/24 12:15 Ondansetron HCl 4 mg Q4HPRN PRN IV 05/19/24 11:45 Pantoprazole Sodium 40 mg DAILY IV 05/20/24 10:00 05/24/24 09:29 40 MG Sodium Chloride 1,000 ml @ 75 mls/hr [id number] IV 05/20/24 15:00 05/23/24 11:50 75 MLS/HR Enteral Nutritional Formula 240 ml BIDWM PO 05/20/24 18:00 05/24/24 08:17 240 ML Hydromorphone HCl 1 mg Q4HPRN PRN IV 05/20/24 16:30 05/24/24 09:30 1 MG Labetalol HCl 10 mg Q4H PRN IV 05/20/24 16:30 Acetaminophen/ Hydrocodone Bitart 1 tab Q4HP PRN PO 05/21/24 15:00 05/24/24 00:40 1 TAB Vancomycin HCl 250 ml @ 250 mls/hr Q10H IV 05/22/24 06:00 05/24/24 08:17 250 MLS/HR Examination: GENERAL:Normal, HEENT:Normal, NECK:Normal, LUNGS:Normal, LUNGS:Abnormal (LEFT CHEST TUBE), CVS:Normal, ABDOMEN:Normal, MSK:Normal, SKIN:Normal, NEURO:Normal, :Normal laboratory and microbiology Laboratory Tests 05/24/24 05:11 Test 05/24/24 05:11 Range/Units Serum Glucose 126 H 74-106 mg/dL Microbiology Date/Time Source Procedure Growth Status 05/13/24 09:10 Pleural Fluid Gram Stain - Final Complete 05/13/24 09:10 Pleural Fluid Aerobic Culture - Final Complete Problem List/Assessment/Plan Problem List/Assessment/Plan #1 acute resp failure: cont oxygen #2 left effusion s/p thoracentesis/ empyema: s/p thoracotomy,iv antibiotics, left chest tube, chest xray in am #3 ? pneumonia - gram positive/neg:iv rocephin, vanc #4 dm: ssi #5 htn #6 obesity #7 liver cirrhosis- ? metabolic #8 wt loss #9 bph #10 transaminitis: monitor #11 acute renal failure ?vasomotor nephropathy:ivf, dc lisinopril advance care planning- full code- time spent 19 mins Plan discussed with: Patient My Orders My Orders Orders - NORIS BRONSON MD Procedure Category Date Status Time Vancomycin,Trough LAB 05/25/24 Verified 13:00 Vancomycin Per MORGAN 05/23/24 In Process Pharmacy Protoc 17:35 Dietary Evaluation Review Recommendations by RD: Dietary education by RD Comments: 1) Substitute Ensure high protein bid for Glucerna bid d/t DM dx 2) Advance diet to CCHO 60g when medically feasible, pending AUDIOVISUAL LIBRARIAN approval 3) Refer to outpatient RD/CDCES for weight management Expected Outcomes/Goals: 1) labs to improve 2) diet to advance 3) f/u in 3-5 days Date of Service: May 24, 2024 Billing Provider: NORIS BRONSON MD Common Visit Codes: [id number] INP/OBS CARE(HIGH) NORIS BRONSON MD May 24, 2024 13:05
[2024-05-24] MEDS: DOCUSATE SOD 100 MG CAP PO SCH (21:21)
[2024-05-25] VITALS (8 sets, daily range): BP systolic 112–157; BP diastolic 67–88; PULSE 80–106; RESP 17–19; TEMP 97.4–98.3; O2SAT 94–98
[2024-05-25] MEDS: PANTOPRAZOLE 40 MG TAB PO SCH (05:51)
--- NOTE | 2024-05-25 06:55 | DVH ---
EXAM: XR Cervical Spine, 6 or More Views CLINICAL INDICATION: s/p chest tub TECHNIQUE: Frontal, lateral, oblique and flexion/extension views of the cervical spine. COMPARISON: XY CHEST PORTABLE on DOS: 05/21/24, XY CHEST PORTABLE on DOS: 05/20/24, XY CHEST PORTABLE on DOS: 05/19/24, XY CHEST PORTABLE on DOS: 05/13/24, XY CHEST XRAY 1 VIEW on DOS: 05/13/24 FINDINGS: VERTEBRAE: Unremarkable. No acute fracture. Normal alignment. No instability. DISC SPACES: No acute findings. No significant narrowing. SOFT TISSUES: Unremarkable. LUNG APICES: Left basilar atelectasis or pneumonia. TUBES, LINES AND DEVICES: Stable left-sided chest tube. No pneumothorax. OTHER FINDINGS: . . . .. IMPRESSION: 1. Left basilar atelectasis or pneumonia. 2. Stable left-sided chest tube. No pneumothorax.
[2024-05-25 07:41] LABS: Basophils # (auto) 0 10 ^3/uL (0-0.2); Basophils % (auto) 0.5 % (0.0-2.0); Eosinophils # (auto) 0.3 10 ^3/uL (0-0.8); Eosinophils % (auto) 4.6 % (0.0-7.0); Hematocrit 28.8 % (41.0-53.0); Hemoglobin 9.8 g/dL (13.5-17.5); Lymphocytes # (auto) 1.4 10 ^3/uL (0.4-5.4); Lymphocytes % (auto) 24.8 % (10.0-50.0); Mean Corpuscular Hemoglobin 29.6 pg (28.0-32.0); Mean Corpuscular Hgb Conc. 33.8 g/dL (32.0-36.0); Mean Corpuscular Volume 87.3 fL (80.0-100.0); Monocytes # (auto) 0.5 10 ^3/uL (0-1.3); Monocytes % (auto) 8.2 % (0.0-12.0); Neutrophils # (auto) 3.6 10 ^3/uL (1.6-8.6); Neutrophils % (auto) 61.9 % (37.0-80.0); Nucleated Red Blood Cells % 0.2 %; Platelet Count (auto) 207 10^3/uL (140-450); Red Cell Distribution Width 14.9 % (11.8-14.3); White Blood Cell 5.7 10^3/uL (4.4-10.8)
--- NOTE | 2024-05-25 11:32 | DVHPN2 ---
Progress Note Date Seen: May 25, 2024 Medical Necessity Reason Pt with a Central, PICC or Fol: No Subjective Patient reports: No new complaints Review of Systems: HEENT:Normal, CVS:Normal, RESPIRATORY:Normal, GI:Normal, :Normal, MSK:Normal, NEURO:Normal Objective vital signs Vital Sign Date Time Temp Pulse Resp B/P (MAP) Pulse Ox O2 Delivery O2 Flow Rate FiO2 05/25/24 08:42 98.3 88 17 112/67 (82) 98 98.3 05/25/24 08:05 Nasal Cannula* 2 28 Total Intake and Output 05/24/24 05/24/24 05/25/24 15:00 23:00 07:00 Intake Total 250 ml 300 ml 252 ml Output Total 40 ml 30 ml Balance 250 ml 260 ml 222 ml medications Current Medications Medications Dose Ordered Sig/Meghann Route Start Time Stop Time Status Last Admin Dose Admin Ceftriaxone Sodium 50 ml @ 100 mls/hr DAILY@2100 IV 05/13/24 21:00 05/24/24 21:21 100 MLS/HR Guaifenesin/ Dextromethorphan 10 ml Q4HP PRN PO 05/12/24 22:30 05/18/24 22:02 10 ML Tamsulosin HCl 0.4 mg QPM PO 05/13/24 18:00 05/24/24 18:16 0.4 MG Acetaminophen 650 mg Q6HP PRN PO 05/12/24 22:30 05/19/24 18:06 650 MG Diagnostic Test (Pha) 1 strip ACHS 05/13/24 17:00 05/25/24 06:00 1 STRIP Insulin Human Regular ACHS SC 05/13/24 17:00 05/25/24 06:01 2 UNITS Dextrose 50 ml UD PRN IV 05/13/24 14:15 Vancomycin HCl 0 ml @ 0 mls/hr UD IV 05/18/24 12:15 Ondansetron HCl 4 mg Q4HPRN PRN IV 05/19/24 11:45 Enteral Nutritional Formula 240 ml BIDWM PO 05/20/24 18:00 05/25/24 08:17 240 ML Hydromorphone HCl 1 mg Q4HPRN PRN IV 05/20/24 16:30 05/25/24 04:40 1 MG Labetalol HCl 10 mg Q4H PRN IV 05/20/24 16:30 Acetaminophen/ Hydrocodone Bitart 1 tab Q4HP PRN PO 05/21/24 15:00 05/25/24 11:27 1 TAB Vancomycin HCl 250 ml @ 250 mls/hr Q10H IV 05/22/24 06:00 05/25/24 03:42 250 MLS/HR Pantoprazole Sodium 40 mg DAILY@0600 PO 05/25/24 06:00 05/25/24 05:51 40 MG Docusate Sodium 100 mg BID PO 05/24/24 22:00 05/25/24 09:12 100 MG Examination: GENERAL:Normal, HEENT:Normal, NECK:Normal, LUNGS:Normal, LUNGS:Abnormal (LEFT CHEST TUBE), CVS:Normal, ABDOMEN:Normal, MSK:Normal, SKIN:Normal, NEURO:Normal, :Normal laboratory and microbiology Laboratory Tests 05/25/24 05:28 05/24/24 05:11 Test 05/24/24 05:11 Range/Units Serum Glucose 126 H 74-106 mg/dL Microbiology Date/Time Source Procedure Growth Status 05/13/24 09:10 Pleural Fluid Gram Stain - Final Complete 05/13/24 09:10 Pleural Fluid Aerobic Culture - Final Complete Problem List/Assessment/Plan Problem List/Assessment/Plan #1 acute resp failure: cont oxygen #2 left effusion s/p thoracentesis/ empyema: s/p thoracotomy,iv antibiotics, left chest tube, chest xray in am #3 ? pneumonia - gram positive/neg:iv rocephin, vanc #4 dm: ssi #5 htn #6 obesity #7 liver cirrhosis- ? metabolic #8 wt loss #9 bph #10 transaminitis: monitor #11 acute renal failure ?vasomotor nephropathy:ivf, dc lisinopril advance care planning- full code- time spent 19 mins Plan discussed with: Patient My Orders My Orders Orders - NORIS BRONSON MD Procedure Category Date Status Time Pantoprazole Tablet PHA 05/25/24 In Process (Protonix Tablet) 06:00 Regular Diet DIET 05/24/24 Transmitted Lunch Discontinue Tele MORGAN 05/24/24 In Process 13:00 Transfer Orders XFER 05/24/24 Transmitted 13:00 Docusate Sodium PHA 05/24/24 In Process Capsule (Colace 22:00 Discontinue Tele MORGAN 05/25/24 Verified 11:30 Transfer Orders XFER 05/25/24 Verified 11:30 Discontinue Frederick MORGAN 05/25/24 Verified Catheter 11:30 Dietary Evaluation Review Recommendations by RD: Dietary education by RD Comments: 1) Substitute Ensure high protein bid for Glucerna bid d/t DM dx 2) Advance diet to CCHO 60g when medically feasible, pending [employer] approval 3) Refer to outpatient RD/CD[facility] for weight management Expected Outcomes/Goals: 1) labs to improve 2) diet to advance 3) f/u in 3-5 days Date of Service: May 25, 2024 Billing Provider: NORIS BRONSON MD Common Visit Codes: [id number] INP/OBS CARE(HIGH) NORIS BRONSON MD May 25, 2024 11:32
--- NOTE | 2024-05-25 12:55 | DVHPN2 ---
Progress Note Date Seen: May 25, 2024 Medical Necessity Reason Pt with a Central, PICC or Fol: No Objective vital signs Vital Sign Date Time Temp Pulse Resp B/P (MAP) Pulse Ox O2 Delivery O2 Flow Rate FiO2 05/25/24 12:35 97.4 106 17 143/81 (101) 94 97.4 05/25/24 08:05 Nasal Cannula* 2 28 Total Intake and Output 05/24/24 05/24/24 05/25/24 15:00 23:00 07:00 Intake Total 250 ml 300 ml 252 ml Output Total 40 ml 30 ml Balance 250 ml 260 ml 222 ml medications Current Medications Medications Dose Ordered Sig/Meghann Route Start Time Stop Time Status Last Admin Dose Admin Ceftriaxone Sodium 50 ml @ 100 mls/hr DAILY@2100 IV 05/13/24 21:00 05/24/24 21:21 100 MLS/HR Guaifenesin/ Dextromethorphan 10 ml Q4HP PRN PO 05/12/24 22:30 05/18/24 22:02 10 ML Tamsulosin HCl 0.4 mg QPM PO 05/13/24 18:00 05/24/24 18:16 0.4 MG Acetaminophen 650 mg Q6HP PRN PO 05/12/24 22:30 05/19/24 18:06 650 MG Diagnostic Test (Pha) 1 strip ACHS 05/13/24 17:00 05/25/24 06:00 1 STRIP Insulin Human Regular ACHS SC 05/13/24 17:00 05/25/24 06:01 2 UNITS Dextrose 50 ml UD PRN IV 05/13/24 14:15 Vancomycin HCl 0 ml @ 0 mls/hr UD IV 05/18/24 12:15 Ondansetron HCl 4 mg Q4HPRN PRN IV 05/19/24 11:45 Enteral Nutritional Formula 240 ml BIDWM PO 05/20/24 18:00 05/25/24 08:17 240 ML Hydromorphone HCl 1 mg Q4HPRN PRN IV 05/20/24 16:30 05/25/24 04:40 1 MG Labetalol HCl 10 mg Q4H PRN IV 05/20/24 16:30 Acetaminophen/ Hydrocodone Bitart 1 tab Q4HP PRN PO 05/21/24 15:00 05/25/24 11:27 1 TAB Vancomycin HCl 250 ml @ 250 mls/hr Q10H IV 05/22/24 06:00 05/25/24 03:42 250 MLS/HR Pantoprazole Sodium 40 mg DAILY@0600 PO 05/25/24 06:00 05/25/24 05:51 40 MG Docusate Sodium 100 mg BID PO 05/24/24 22:00 05/25/24 09:12 100 MG laboratory and microbiology Laboratory Tests 05/25/24 05:28 05/24/24 05:11 Test 05/24/24 05:11 Range/Units Serum Glucose 126 H 74-106 mg/dL Problem List/Assessment/Plan Problem List/Assessment/Plan 05/20/24 breathing"much easier", good air entry, no adventitial breath sounds, chest tube without air leak, serosanguineous pleural fluid. CXR with both lungs fully inflated, no pneumothorax, chest tube in good position.can downgrade to [place], [place] to start po intake 05/21/24 ALERT, COOPERATIVE, BREATHING WELL, CHEST TUBE WITHOUT AIR LEAK, DRESSING DRY, AFEBRILE, TACHYCARDIC, SLIGHTLY HYPERTENSIVE, GOOD EFFORT WITH SPIROMETER. CAN BE TRANSFERRED TO TELEMETRY WITH BEDSIDE PULSE OXIMETRY. 05/22/24 FEELS WELL, HAS BEEN TOLERATING PO LIQUIDS AND WISHES TO STAY WITH THAT ,GOOD INSPIRATORY EFFORT, CXR STABLE, CHEST TUBE WITH 50CC /24 HOURS OF SERO SANGUINEOUS FLUID, 05/23/24 feels well, has ambulated, had a bowel movement, voiding tolerating po, CT output 75 cc(serous) 05/25/24 CHEST TUBE OUTPUT AGAIN REPORTED 70 CC, NO AIR LEAK, CXR STABLE, WILL CONSIDER REMOVING CHEST TUBE IN AM IF DRAINAGE NO MORE THAN 30 CC Plan discussed with: Patient Dietary Evaluation Review Recommendations by RD: Dietary education by RD Comments: 1) Substitute Ensure high protein bid for Glucerna bid d/t DM dx 2) Advance diet to CCHO 60g when medically feasible, pending [employer]ER ASSEMBLER approval 3) Refer to outpatient RD/CD[facility] for weight management Expected Outcomes/Goals: 1) labs to improve 2) diet to advance 3) f/u in 3-5 days LANDEN RICHTER MD May 25, 2024 12:55
[2024-05-26] VITALS (8 sets, daily range): BP systolic 119–156; BP diastolic 63–86; PULSE 81–93; RESP 16–20; TEMP 97.5–98.6; O2SAT 90–98
[2024-05-26 06:07] LABS: Basophils # (auto) 0 10 ^3/uL (0-0.2); Basophils % (auto) 0.4 % (0.0-2.0); Eosinophils # (auto) 0.2 10 ^3/uL (0-0.8); Eosinophils % (auto) 3.5 % (0.0-7.0); Hematocrit 27.7 % (41.0-53.0); Hemoglobin 9.3 g/dL (13.5-17.5); Lymphocytes # (auto) 1.2 10 ^3/uL (0.4-5.4); Lymphocytes % (auto) 20.6 % (10.0-50.0); Mean Corpuscular Hemoglobin 29.4 pg (28.0-32.0); Mean Corpuscular Hgb Conc. 33.5 g/dL (32.0-36.0); Mean Corpuscular Volume 87.6 fL (80.0-100.0); Monocytes # (auto) 0.4 10 ^3/uL (0-1.3); Monocytes % (auto) 7.1 % (0.0-12.0); Neutrophils % (auto) 68.4 % (37.0-80.0); Nucleated Red Blood Cells % 0.1 %; Platelet Count (auto) 196 10^3/uL (140-450); Red Blood Cells 3.16 10^6/uL (4.5-5.90); Red Cell Distribution Width 15.3 % (11.8-14.3); White Blood Cell 5.8 10^3/uL (4.4-10.8)
--- NOTE | 2024-05-26 11:36 | DVHPN2 ---
Progress Note Date Seen: May 26, 2024 Medical Necessity Reason Pt with a Central, PICC or Fol: No Subjective Patient reports: No new complaints Review of Systems: HEENT:Normal, CVS:Normal, RESPIRATORY:Normal, GI:Normal, :Normal, MSK:Normal, NEURO:Normal Objective vital signs Vital Sign Date Time Temp Pulse Resp B/P (MAP) Pulse Ox O2 Delivery O2 Flow Rate FiO2 05/26/24 09:00 97.5 81 18 119/75 (90) 98 97.5 05/26/24 07:45 Nasal Cannula* 2 28 Total Intake and Output 05/25/24 05/25/24 05/26/24 15:00 23:00 07:00 Intake Total 1040 ml 800 ml Output Total 1150 ml 970 ml Balance -110 ml -170 ml medications Current Medications Medications Dose Ordered Sig/Meghann Route Start Time Stop Time Status Last Admin Dose Admin Ceftriaxone Sodium 50 ml @ 100 mls/hr DAILY@2100 IV 05/13/24 21:00 05/25/24 22:13 100 MLS/HR Guaifenesin/ Dextromethorphan 10 ml Q4HP PRN PO 05/12/24 22:30 05/18/24 22:02 10 ML Tamsulosin HCl 0.4 mg QPM PO 05/13/24 18:00 05/25/24 17:10 0.4 MG Acetaminophen 650 mg Q6HP PRN PO 05/12/24 22:30 05/19/24 18:06 650 MG Diagnostic Test (Pha) 1 strip ACHS 05/13/24 17:00 05/26/24 06:12 1 STRIP Insulin Human Regular ACHS SC 05/13/24 17:00 05/25/24 06:01 2 UNITS Dextrose 50 ml UD PRN IV 05/13/24 14:15 Vancomycin HCl 0 ml @ 0 mls/hr UD IV 05/18/24 12:15 Ondansetron HCl 4 mg Q4HPRN PRN IV 05/19/24 11:45 Enteral Nutritional Formula 240 ml BIDWM PO 05/20/24 18:00 05/26/24 08:00 240 ML Hydromorphone HCl 1 mg Q4HPRN PRN IV 05/20/24 16:30 05/26/24 06:14 1 MG Labetalol HCl 10 mg Q4H PRN IV 05/20/24 16:30 Acetaminophen/ Hydrocodone Bitart 1 tab Q4HP PRN PO 05/21/24 15:00 05/26/24 03:30 1 TAB Vancomycin HCl 250 ml @ 250 mls/hr Q10H IV 05/22/24 06:00 05/26/24 10:01 250 MLS/HR Pantoprazole Sodium 40 mg DAILY@0600 PO 05/25/24 06:00 05/26/24 06:12 40 MG Docusate Sodium 100 mg BID PO 05/24/24 22:00 05/26/24 10:01 100 MG Examination: GENERAL:Normal, HEENT:Normal, NECK:Normal, LUNGS:Normal, LUNGS:Abnormal (LEFT CHEST TUBE), CVS:Normal, ABDOMEN:Normal, MSK:Normal, SKIN:Normal, NEURO:Normal, :Normal laboratory and microbiology Laboratory Tests 05/26/24 05:40 05/24/24 05:11 Test 05/24/24 05:11 Range/Units Serum Glucose 126 H 74-106 mg/dL Microbiology Date/Time Source Procedure Growth Status 05/13/24 09:10 Pleural Fluid Gram Stain - Final Complete 05/13/24 09:10 Pleural Fluid Aerobic Culture - Final Complete Problem List/Assessment/Plan Problem List/Assessment/Plan #1 acute resp failure: cont oxygen #2 left effusion s/p thoracentesis/ empyema: s/p thoracotomy,iv antibiotics, left chest tube, chest xray in am #3 ? pneumonia - gram positive/neg:iv rocephin, vanc #4 dm: ssi #5 htn #6 obesity #7 liver cirrhosis- ? metabolic #8 wt loss #9 bph #10 transaminitis: monitor #11 acute renal failure ?vasomotor nephropathy:ivf, dc lisinopril advance care planning- full code- time spent 19 mins Plan discussed with: Patient My Orders My Orders Orders - NORIS BRONSON MD Procedure Category Date Status Time Vancomycin,Trough LAB 05/28/24 Verified 11:00 Vancomycin Per MORGAN 05/25/24 In Process Pharmacy Protoc 17:52 Dietary Evaluation Review Recommendations by RD: Dietary education by RD Comments: 1) Substitute Ensure high protein bid for Glucerna bid d/t DM dx 2) Advance diet to CCHO 60g when medically feasible, pending BLACKSMITH ASSISTANT approval 3) Refer to outpatient RD/CDCES for weight management Expected Outcomes/Goals: 1) labs to improve 2) diet to advance 3) f/u in 3-5 days Date of Service: May 26, 2024 Billing Provider: NORIS BRONSON MD Common Visit Codes: [id number] INP/OBS CARE(HIGH) NORIS BRONSON MD May 26, 2024 11:36
[2024-05-26] MEDS: LABETALOL HCL 20 MG/4 ML VL IV PRN (23:22)
--- NOTE | 2024-05-27 01:59 | DVHPN2 ---
Progress Note Date Seen: May 26, 2024 Medical Necessity Reason Pt with a Central, PICC or Fol: No Subjective Patient reports: No new complaints, Feels better Review of Systems: HEENT:Normal, CVS:Normal, RESPIRATORY:Normal, GI:Normal, :Normal, MSK:Normal, NEURO:Normal Objective vital signs Vital Sign Date Time Temp Pulse Resp B/P (MAP) Pulse Ox O2 Delivery O2 Flow Rate FiO2 05/26/24 23:22 92 155/78 05/26/24 23:11 17 05/26/24 21:00 98.6 97 98.6 05/26/24 20:00 Nasal Cannula* 2 28 Total Intake and Output 05/26/24 05/26/24 05/27/24 15:00 23:00 07:00 Intake Total 250 ml 965 ml 50 ml Balance 250 ml 965 ml 50 ml medications Current Medications Medications Dose Ordered Sig/Meghann Route Start Time Stop Time Status Last Admin Dose Admin Ceftriaxone Sodium 50 ml @ 100 mls/hr DAILY@2100 IV 05/13/24 21:00 05/26/24 22:31 100 MLS/HR Guaifenesin/ Dextromethorphan 10 ml Q4HP PRN PO 05/12/24 22:30 05/18/24 22:02 10 ML Tamsulosin HCl 0.4 mg QPM PO 05/13/24 18:00 05/26/24 18:07 0.4 MG Acetaminophen 650 mg Q6HP PRN PO 05/12/24 22:30 05/19/24 18:06 650 MG Diagnostic Test (Pha) 1 strip ACHS 05/13/24 17:00 05/26/24 17:00 1 STRIP Insulin Human Regular ACHS SC 05/13/24 17:00 05/25/24 06:01 2 UNITS Dextrose 50 ml UD PRN IV 05/13/24 14:15 Vancomycin HCl 0 ml @ 0 mls/hr UD IV 05/18/24 12:15 Ondansetron HCl 4 mg Q4HPRN PRN IV 05/19/24 11:45 Enteral Nutritional Formula 240 ml BIDWM PO 05/20/24 18:00 05/26/24 17:55 240 ML Hydromorphone HCl 1 mg Q4HPRN PRN IV 05/20/24 16:30 05/26/24 22:41 1 MG Labetalol HCl 10 mg Q4H PRN IV 05/20/24 16:30 05/26/24 23:22 10 MG Acetaminophen/ Hydrocodone Bitart 1 tab Q4HP PRN PO 05/21/24 15:00 05/26/24 20:02 1 TAB Vancomycin HCl 250 ml @ 250 mls/hr Q10H IV 05/22/24 06:00 05/26/24 19:55 250 MLS/HR Pantoprazole Sodium 40 mg DAILY@0600 PO 05/25/24 06:00 05/26/24 06:12 40 MG Docusate Sodium 100 mg BID PO 05/24/24 22:00 05/26/24 10:01 100 MG Examination: GENERAL:Normal, HEENT:Normal, NECK:Normal, LUNGS:Normal, CVS:Normal, ABDOMEN:Normal, MSK:Normal, SKIN:Normal laboratory and microbiology Laboratory Tests 05/26/24 05:40 05/24/24 05:11 Test 05/24/24 05:11 Range/Units Serum Glucose 126 H 74-106 mg/dL Problem List/Assessment/Plan Problem List/Assessment/Plan 05/24/24 no new complaints , patient doing well, no leak, output decreasing , possibly remove chest tube tomorrow , Chest X-ray in the Am Dr. Valencia agrees with plan 05/26/23 @ 1245 - patient doing well , minimal drainage chest tube, no leak , chest tube removed, patient tolerated, wound dressing applied, no SOB Plan discussed with: Patient, Other (Dr. Valencia) Dietary Evaluation Review Recommendations by RD: Dietary education by RD Comments: 1) Substitute Ensure high protein bid for Glucerna bid d/t DM dx 2) Advance diet to CCHO 60g when medically feasible, pending CNA PCT approval 3) Refer to outpatient RD/CDCES for weight management Expected Outcomes/Goals: 1) labs to improve 2) diet to advance 3) f/u in 3-5 days BELA SANDOVAL NP May 27, 2024 01:59
[2024-05-27 05:00] VITALS: BP 133/69; PULSE 77; RESP 20; TEMP 98.3; O2SAT 98
--- NOTE | 2024-05-27 07:02 | DVH ---
CHEST RADIOGRAPH Indication: s/p chest tube removal Technique: Single frontal view of the chest was obtained Comparison: XY CHEST XRAY 1 VIEW on DOS: 05/25/24 FINDINGS: Lines and Tubes: Removal of the left chest tube. Lungs: Left basilar opacity. Pleura: Left pleural effusion similar to prior study. No pneumothorax. Cardiomediastinal contours: Unremarkable Bones: No acute osseous abnormality. IMPRESSION: 1. Left pleural effusion and basilar opacities. 2. Left chest tube has been removed. No pneumothorax.
[2024-05-27 07:26] LABS: Basophils # (auto) 0 10 ^3/uL (0-0.2); Basophils % (auto) 0.8 % (0.0-2.0); Eosinophils # (auto) 0.2 10 ^3/uL (0-0.8); Hematocrit 28.6 % (41.0-53.0); Hemoglobin 9.7 g/dL (13.5-17.5); Lymphocytes # (auto) 1.3 10 ^3/uL (0.4-5.4); Lymphocytes % (auto) 21.2 % (10.0-50.0); Mean Corpuscular Hemoglobin 29.6 pg (28.0-32.0); Mean Corpuscular Hgb Conc. 33.9 g/dL (32.0-36.0); Mean Corpuscular Volume 87.2 fL (80.0-100.0); Monocytes # (auto) 0.4 10 ^3/uL (0-1.3); Monocytes % (auto) 6.5 % (0.0-12.0); Neutrophils # (auto) 4.1 10 ^3/uL (1.6-8.6); Neutrophils % (auto) 68.5 % (37.0-80.0); Nucleated Red Blood Cells % 0.1 %; Platelet Count (auto) 166 10^3/uL (140-450); Red Blood Cells 3.28 10^6/uL (4.5-5.90); Red Cell Distribution Width 15.1 % (11.8-14.3)
[2024-05-27 07:30] LABS: Anion Gap 11 (5-15); Calcium 8.9 mg/dL (8.7-10.4); Carbon Dioxide 24 mmol/L (20-31); Chloride 102 mmol/L (98-107); Potassium 3.9 mmol/L (3.5-5.1); Sodium 137 mmol/L (136-145)
[2024-05-27 07:36] LABS: BUN/Creatinine Ratio 9.1 (10.0-20.0)
[2024-05-27 07:40] LABS: Blood Urea Nitrogen 9 mg/dL (9-23); Glucose 131 mg/dL (74-106)
[2024-05-27 09:00] VITALS: BP 119/58; PULSE 93; RESP 17; TEMP 98.6; O2SAT 91
--- NOTE | 2024-05-27 11:11 | DVHPN2 ---
Progress Note Date Seen: May 27, 2024 Medical Necessity Reason Pt with a Central, PICC or Fol: No Objective vital signs Vital Sign Date Time Temp Pulse Resp B/P (MAP) Pulse Ox O2 Delivery O2 Flow Rate FiO2 05/27/24 09:00 98.6 93 17 119/58 (78) 91 98.6 05/26/24 20:00 Nasal Cannula* 2 28 Total Intake and Output 05/26/24 05/26/24 05/27/24 15:00 23:00 07:00 Intake Total 250 ml 965 ml 350 ml Balance 250 ml 965 ml 350 ml medications Current Medications Medications Dose Ordered Sig/Meghann Route Start Time Stop Time Status Last Admin Dose Admin Ceftriaxone Sodium 50 ml @ 100 mls/hr DAILY@2100 IV 05/13/24 21:00 05/26/24 22:31 100 MLS/HR Guaifenesin/ Dextromethorphan 10 ml Q4HP PRN PO 05/12/24 22:30 05/18/24 22:02 10 ML Tamsulosin HCl 0.4 mg QPM PO 05/13/24 18:00 05/26/24 18:07 0.4 MG Acetaminophen 650 mg Q6HP PRN PO 05/12/24 22:30 05/19/24 18:06 650 MG Diagnostic Test (Pha) 1 strip ACHS 05/13/24 17:00 05/26/24 17:00 1 STRIP Insulin Human Regular ACHS SC 05/13/24 17:00 05/25/24 06:01 2 UNITS Dextrose 50 ml UD PRN IV 05/13/24 14:15 Vancomycin HCl 0 ml @ 0 mls/hr UD IV 05/18/24 12:15 Ondansetron HCl 4 mg Q4HPRN PRN IV 05/19/24 11:45 Enteral Nutritional Formula 240 ml BIDWM PO 05/20/24 18:00 05/27/24 08:45 240 ML Hydromorphone HCl 1 mg Q4HPRN PRN IV 05/20/24 16:30 05/26/24 22:41 1 MG Labetalol HCl 10 mg Q4H PRN IV 05/20/24 16:30 05/26/24 23:22 10 MG Acetaminophen/ Hydrocodone Bitart 1 tab Q4HP PRN PO 05/21/24 15:00 05/26/24 20:02 1 TAB Vancomycin HCl 250 ml @ 250 mls/hr Q10H IV 05/22/24 06:00 05/26/24 19:55 250 MLS/HR Pantoprazole Sodium 40 mg DAILY@0600 PO 05/25/24 06:00 05/27/24 06:20 40 MG Docusate Sodium 100 mg BID PO 05/24/24 22:00 05/27/24 08:45 100 MG laboratory and microbiology Laboratory Tests 05/27/24 06:33 Test 05/27/24 06:33 Range/Units Serum Glucose 131 H 74-106 mg/dL Problem List/Assessment/Plan Problem List/Assessment/Plan 05/20/24 breathing"much easier", good air entry, no adventitial breath sounds, chest tube without air leak, serosanguineous pleural fluid. CXR with both lungs fully inflated, no pneumothorax, chest tube in good position.can downgrade to [place], [place] to start po intake 05/21/24 ALERT, COOPERATIVE, BREATHING WELL, CHEST TUBE WITHOUT AIR LEAK, DRESSING DRY, AFEBRILE, TACHYCARDIC, SLIGHTLY HYPERTENSIVE, GOOD EFFORT WITH SPIROMETER. CAN BE TRANSFERRED TO TELEMETRY WITH BEDSIDE PULSE OXIMETRY. 05/22/24 FEELS WELL, HAS BEEN TOLERATING PO LIQUIDS AND WISHES TO STAY WITH THAT ,GOOD INSPIRATORY EFFORT, CXR STABLE, CHEST TUBE WITH 50CC /24 HOURS OF SERO SANGUINEOUS FLUID, 05/23/24 feels well, has ambulated, had a bowel movement, voiding tolerating po, CT output 75 cc(serous) 05/25/24 CHEST TUBE OUTPUT AGAIN REPORTED 70 CC, NO AIR LEAK, CXR STABLE, WILL CONSIDER REMOVING CHEST TUBE IN AM IF DRAINAGE NO MORE THAN 30 CC 05/27/24 feeling well, breathing without difficulty, CXR without pneumothorax, from surgical point of view he is cleared for discharge Plan discussed with: Patient Dietary Evaluation Review Recommendations by RD: Dietary education by RD Comments: 1) Substitute Ensure high protein bid for Glucerna bid d/t DM dx 2) Advance diet to CCHO 60g when medically feasible, pending BILLET CUTTER approval 3) Refer to outpatient RD/CDCES for weight management Expected Outcomes/Goals: 1) labs to improve 2) diet to advance 3) f/u in 3-5 days LANDEN RICHTER MD May 27, 2024 11:11
[2024-05-27 13:00] VITALS: BP 120/74; PULSE 101; RESP 16; TEMP 98.3; O2SAT 93
--- NOTE | 2024-05-27 14:58 | DVHDS2 ---
Discharge Summary Date of Admission May 12, 2024 at 20:35 Date of Discharge: May 27, 2024 Labs/Diagnostic Data: Laboratory Results Test 05/27/24 06:33 05/26/24 11:51 05/25/24 13:35 05/24/24 05:11 White Blood Count 6.0 10^3/uL (4.4-10.8) Red Blood Count 3.28 10^6/uL (4.5-5.90) Hemoglobin 9.7 g/dL (13.5-17.5) Hematocrit 28.6 % (41.0-53.0) Mean Corpuscular Volume 87.2 fL (80.0-100.0) Mean Corpuscular Hemoglobin 29.6 pg (28.0-32.0) Mean Corpuscular Hemoglobin Concent 33.9 g/dL (32.0-36.0) Red Cell Distribution Width 15.1 % (11.8-14.3) Platelet Count 166 10^3/uL (140-450) Mean Platelet Volume 8.8 fL (6.9-10.8) Neutrophils (%) (Auto) 68.5 % (37.0-80.0) Lymphocytes (%) (Auto) 21.2 % (10.0-50.0) Monocytes (%) (Auto) 6.5 % (0.0-12.0) Eosinophils (%) (Auto) 3.0 % (0.0-7.0) Basophils (%) (Auto) 0.8 % (0.0-2.0) Neutrophils # (Auto) 4.1 10 ^3/uL (1.6-8.6) Lymphocytes # (Auto) 1.3 10 ^3/uL (0.4-5.4) Monocytes # (Auto) 0.4 10 ^3/uL (0-1.3) Eosinophils # (Auto) 0.2 10 ^3/uL (0-0.8) Basophils # (Auto) 0 10 ^3/uL (0-0.2) Nucleated Red Blood Cells 0.1 % Sodium Level 137 mmol/L (136-145) Potassium Level 3.9 mmol/L (3.5-5.1) Chloride Level 102 mmol/L (98-107) Carbon Dioxide Level 24 mmol/L (20-31) Anion Gap 11 (5-15) Blood Urea Nitrogen 9 mg/dL (9-23) Creatinine 0.99 mg/dL (0.700-1.30) Glomerular Filtration Rate Calc 89 mL/min (>90) BUN/Creatinine Ratio 9.1 (10.0-20.0) Serum Glucose 131 mg/dL (74-106) Calcium Level 8.9 mg/dL (8.7-10.4) POC Glucose 141 mg/dl (70-106) Vancomycin Level Trough 15.3 ug/mL (5-10) Total Bilirubin 0.4 mg/dL (0.2-1.0) Aspartate Amino Transferase (AST) 31 U/L (13-40) Alanine Aminotransferase (ALT) 45 U/L (7-40) Alkaline Phosphatase 98 U/L (46-116) Total Protein 6.8 g/dL (5.7-8.2) Albumin 3.7 g/dL (3.2-4.8) Test 05/19/24 06:06 05/18/24 13:16 05/18/24 05:45 05/14/24 05:34 Random Vancomycin Level 9.9 ug/mL (5-10) Prothrombin Time 12.4 sec (9.3-11.8) Prothrombin Time INR 1.19 (0.9-1.15) Activated Partial Thromboplast Time 30.2 SEC (24.5-34.5) Iron Level 35 ug/dL (65-175) Total Iron Binding Capacity 228 ug/dL (250-425) Percent Iron Saturation 15.4 % (20-55) Lactate Dehydrogenase 157 U/L (120-246) Hemoglobin A1c 6.3 % A1C (<5.7) Test 05/13/24 18:36 05/13/24 14:37 05/13/24 09:10 05/13/24 05:20 Urine Color Light-yellow (Yellow) Urine Clarity Clear (Clear) Urine pH 5.0 (5.0-9.0) Urine Specific [place] 1.021 (1.001-1.035) Urine Protein Negative (Negative) Urine Ketones Negative (Negative) Urine Blood Negative /uL (Negative) Urine Nitrite Negative (Negative) Urine Bilirubin Negative (Negative) Urine Urobilinogen Normal mg/dL (Negative) Urine Leukocyte Esterase Negative /uL (Negative) Urine RBC 6 /hpf (0 - 3) Urine Microscopic WBC 2 /HPF (0-3) Urine Squamous Epithelial Cells Few /hpf (<5) Urine Uric Acid Crystals Few /hpf (None Seen) Urine Bacteria None seen /hpf (None Seen) Urine Mucus Few (None Seen) Urine Glucose 3+ mg/dL (Normal) Hepatitis A IgM Antibody Negative Hepatitis B Surface Antigen Negative (Negative) Hepatitis B Core IgM Antibody Negative (Negative) Hepatitis C Antibody Negative (Negative) Body Fluid Source Pleural fluid Body Fluid pH 8.0 Body Fluid WBC (Manual) 3118 CUMM (0-200) Body Fluid RBC (Manual) 8356 CUMM (0-2000) Body Fluid Mononuclear Cells 39 % Body Fluid Polymorphonuclear Cells 61 % (0-25) Body Fluid Glucose 98 mg/dL (.) Body Fluid Total Protein 5.5 g/dL (.) Body Fluid Lactate Dehydrogenase 446 IU/L (.) Influenza Type A Antigen Negative (Negative) Influenza Type B Antigen Negative (Negative) SARS-CoV-2 Antigen (Rapid) Negative (NEGATIVE) Test 05/12/24 22:47 D-Dimer, Quantitative 6.48 mg/L FEU (0.0-0.49) Troponin I High Sensitivity < 3 ng/L (</=54) B-Type Natriuretic Peptide 11.88 pg/mL (0-100) Other Laboratory Tests 05/27/24 06:33 Brief Hx & Hospital Course: see dictated note Condition at Discharge: Fair Final Diagnosis/Problems List left empyema Discharge Disposition: Home Discharge Instruct/Medications Diet: Cardiac 2g Na,low cholest Activity: No Restrictions, As Tolerated Follow Up/Referral: schedule appt with dr Valencia in 1 wk Medications: resume home meds script to pharmacy Discharge Statement: "Patient was advised to return to the ER or call 911 if any headaches, dizziness, shortness of breath, chest pain, abdominal pain, bleeding, fevers, or worsening of medical condition. Patient was counseled about treatment plan, medications, possible side effects, patientverbalized understanding. All questions were answered to the best of my ability. This discharge took greater then 30 minutes in planning, reviewing documentation, counseling the patient, and discussing with other team members." ASSESSMENT ASSESSMENT Assessment left empyema Date of Service: May 27, 2024 Billing Provider: NORIS BRONSON MD Common Visit Codes: 44633-CLI/OBS DISCH DAY >30min NORIS BRONSON MD May 27, 2024 14:57
[2024-05-27] MEDS ORDERED: HYDR1TAB97 PO (14:59)
[2024-05-27] MEDS ORDERED: AUG875T PO (14:59)
[2024-05-27 16:07] VITALS: BP 133/69; PULSE 77
[2024-05-27 17:00] VITALS: BP 131/74; PULSE 98; RESP 18; TEMP 98.4; O2SAT 92
--- NOTE | 2024-05-27 18:09 | DVHDS ---
DATE OF DISCHARGE: 05/27/2024 The patient is a 58-year-old gentleman who was admitted with history of shortness of breath and had recent pneumonia. He has history of liver cirrhosis, diabetes, hypertension, asthma, and BPH. HOSPITAL COURSE: The patient had CT angiography that showed no pulmonary embolism, but moderately loculated left pleural effusion with left basilar consolidation. The patient was seen in surgery consult by Dr. Valencia. The patient underwent thoracentesis that showed evidence of exudate with 1.2 liters of fluid removed. The patient subsequently underwent thoracotomy by Dr. Valencia with placement of a left-sided chest tube and a pleural peel. The patient subsequently had the chest tube removed and is now feeling well. He will be now discharged home to resume his home medications as well as to be on Augmentin 875 mg p.o. b.i.d. for seven days and [place] p.r.n. for pain. He will be scheduled to follow up with Dr. Valencia in one week. FINAL DIAGNOSES: * Acute respiratory failure. * Left-sided empyema, status post thoracentesis, status post thoracotomy. * Left-sided pneumonia. * Diabetes mellitus. * Hypertension. * Obesity. * Liver cirrhosis which is metabolic. * Benign prostatic hypertrophy. * Transaminitis. * Acute renal failure, questionable vasomotor nephropathy. Time spent in discharge planning and review of plan with the patient, nursing, and safety consultant was 41 minutes. MD ROSEMARY Sullivan/ARSENIO/ELIEL TID: [id number] RECEIPT: [id number]
== END 2024-05-27 18:15 | disposition home or self-care (01) | DRG 163 ==
LOC: TELE-WESTW 20:35 → WEST WING 23:54 → PACU ICU 05-19 10:00 → CATH ICU 05-20 17:51 → TELE-WESTW 05-21 14:13 → WEST WING 05-25 07:05
PROVIDERS: ADMIT Family Medicine; ATTEND Internal Medicine
PROC: 0W9B3ZZ Drainage of Left Pleural Cavity, Percutaneous Approach (ICD-10-PCS; 2024-05-13)
PROC: 0WJ Anatomical Regions, General, Inspection (ICD-10-PCS; 2024-05-19)
PROC: 0W9B00Z Drainage of Left Pleural Cavity with Drainage Device, Open Approach (ICD-10-PCS; 2024-05-19)
PROC: 0BNG0ZZ Release Left Upper Lung Lobe, Open Approach (ICD-10-PCS; principal; 2024-05-19 09:44)
PROC: 0BNJ0ZZ Release Left Lower Lung Lobe, Open Approach (ICD-10-PCS; 2024-05-19 09:44)
DX: J86.9 Pyothorax without fistula (principal); J15.69 Pneumonia due to other Gram-negative bacteria; J96.00 Acute respiratory failure, unspecified whether with hypoxia or hypercapnia; N17.0 Acute kidney failure with tubular necrosis; J15.9 Unspecified bacterial pneumonia; J90 Pleural effusion, not elsewhere classified; Z20.822 Contact with and (suspected) exposure to COVID-19; I10 Essential (primary) hypertension; E11.9 Type 2 diabetes mellitus without complications; K74.60 Unspecified cirrhosis of liver; N40.0 Benign prostatic hyperplasia without lower urinary tract symptoms; J45.909 Unspecified asthma, uncomplicated; E66.9 Obesity, unspecified; Z91.040 Latex allergy status; Z91.018 Allergy to other foods; Z88.8 Allergy status to other drugs, medicaments and biological substances; Z68.35 Body mass index [BMI] 35.0-35.9, adult
CPT/HCPCS: 36415; 71045; 71260; 71275; 74177; 76604; 76942; 80048; 80053; 80074; 80202; 81001; 82565; 82948; 82962; 83036; 83540; 83550; 83615; 83880; 83986; 84484; 85025; 85379; 85610; 85730; 86850; 86900; 86901; 87070; 87081; 87205; 87426; 87804; 89051; 94640; 94660; 97110; 97116; 97163; 97530; G0378; J1815; J2003; J2250; J2405; J2470; J2704; J3490